=== PATIENT | female | born 1945 | race Caucasian/White ===

== ENCOUNTER 2018-09-08 05:51 | Inpatient (IN) | payer MEDICARE, OTHER, SELFPAY ==
[2018-09-01 08:31] VITALS: BMI 40.7
[2018-09-08] VITALS (16 sets, daily range): BP systolic 114–151; BP diastolic 49–90; PULSE 85–96; RESP 10–21; TEMP 36.1–37.2; O2SAT 92–99; BMI 40.4
[2018-09-08] MEDS: LACTATED RINGERS 1,000 ML 42 ML IV ×2 (07:25→10:27)
--- NOTE | 2018-09-08 07:48 | PM.PREOP ---
Pre-operative Note Interval Note History & Physical reviewed/Exam performed by Physician: Yes Changes to H&P: No
[2018-09-08] MEDS: CEFAZOLIN 2 GM/100 ML FROZ.PIGGY IV ×3 (07:51→23:39)
--- NOTE | 2018-09-08 08:42 | SUR.OPER ---
Prone on spine table, head in foam head support, padded chest and pelvic supports, gel pad at knees, lower legs supported by pillows; nipples, genitalia and toes free of pressure, arms secured on foam padded arm boards at <90 degrees abduction. Tape over blanket at thigh secured to table.
[2018-09-08] MEDS: BUPIVACAINE LIPOSOME 266 MG/20 ML VIAL INJ (08:51)
[2018-09-08] MEDS: BUPIVACAINE 0.25% W/ EPI VIAL 30 ML INJ (08:51)
[2018-09-08] MEDS: ACETAMINOPHEN IV 1,000 MG/100 ML VIAL 400 MG IV (10:17)
--- NOTE | 2018-09-08 11:29 | PM.OP.1 ---
Operative Date/Time/Diagnoses Date of procedure: 09/08/18 Time of procedure: 08:29 Pre-op diagnosis: 1. L4-5, L5-S1 spondylolisthesis 2. L4-5, L5-S1 spinal stenosis. Post-op diagnosis: same Procedure & Clinicians Procedure: 1. L4-5, L5-S1 Postero-lateral and posterior interbody fusion 2. L4-5, L5-S1 interbody cage placement. 3. L4-5, L5-S1 decompressive laminectomy with bilateral facetecomies 4. L4-5, L5-S1 Posterior segmental instrumentation 5. Coleman of bone marrow from iliac crest 6. Utilization of microsurgical technique and operating microscope Same procedure as scheduled: Yes Indications: Patient has been having chronic back pain and worsening lumbar radiculopathy. Patient failed multiple conservative management with worsening pain weakness and numbness in her lower extremity. Patient has been having difficulty performing activity of daily living. After discussing risks benefits of treatment options, patient elected proceed with surgery. Surgeon: Dorothy Claudio Chief Executive Or Managing Director: Leila Fairbanks Click Yes if Unassisted: No Anesthesia Type: General Operative Notes Closure Type: primary Specimen(s): none sent Prosthetic devices, grafts, tissues, transplants, or devices: Globus revolve screws, Rise cages Applied: catheter Estimated Blood Loss (mL): 100 Blood products transfused: none Procedure in detail: Patient was seen in the preoperative area. Risks and benefits of the surgery was discussed with the patient. Informed consent was obtained from the patient and placed in the chart. Surgical site was marked. Patient was taken to the operative room. General anesthesia was administered. Prophylactic antibiotic was given to the patient less than 30 min before the incision was made. Patient was placed into a prone position on the Mitchell table. Patient's back was then prepped and draped in the sterile fashion. Time-out was performed at this time. Using AP and lateral C-arm imaging the interval between L4-S1 was identified and marked on patient's back. A 2 inch incision 2 in from midline was made on the left side first. The fascia was incised in line with skin incision. Globus MARS retractors was placed inside the incision and docked onto the L4 and L5 lamina. Using microsurgical technique and operating microscope, a L4 and L5 laminectomy and L4-5 L5-S1 facetectomy was performed using a Kerrison rongeur. During the process of decompression more than 75% of bilateral L4-5 L5-S1 facets were removed in order to decompress the spinal canal and the lateral recess. The L4-5 L5-S1 level was grossly unstable after the decompression was completed and requiring the fusion procedure. The disc space at L4-5, L5-S1 was identified. And a total diskectomy was performed at L4-5, L5-S1 level. The endplates were decorticated using a rasp and shaver. The total diskectomy and decortication was performed at L4-5, L5-S1 level in order to to accomplish a L4-5, L5-S1 fusion. The local bone from the laminectomy and facetectomy was saved for local bone grafting. After the total diskectomy and decortication was completed, Bio4 bone graft material was combined with local bone that was harvested earlier. At this time, a separate skin is incision was made over the iliac crest. A Jamshidi needle was inserted into the iliac crest through a separate skin incision. 5 cc of bone marrow aspiration was obtained through the separate skin incision using a Jamshidi needle from the iliac crest. The bone marrow aspiration was combined with local bone and the Bio4 bone grafting material. The bone grafting material was placed into the L4-5, L5-S1 interbody space along with two cages, one expandable cage at each level. The cages were expanded to their maximum height using the torque limiting screwdriver. At this time a mirror image incision was made on the right side. The fascia was incised in line with the skin incision. Globus MARS retractor was inserted and docked onto the L4-5, L5-S1 posterolateral gutter. Using the power drill, posterior-lateral decortication was performed at L4-5, L5-S1 level until bleeding cortical bone was identified. The remaining bone grafting material was placed into the L4-5 L5-S1 posterior lateral gutter he order to accomplish posterolateral fusion at the L4-5 L5-S1 levels. Using the double C-arm technique, pedicle screws were placed into the L4, L5, S1 pedicles bilaterally. This was done by placing the Jamshidi needle into the pedicles, then placing the guidewires over the Jamshidi needle, and finally placing the cannulated screws over the guidewires bilaterally. After the pedicle screws were placed, 2 titanium rods was locked into the heads of the pedicle screws using locking caps and torque limiting screwdriver. Total 6 pedicles screws were placed. After all the hardware was placed, and confirmed with AP and lateral C-arm imaging, the wound was then irrigated with sterile normal saline and packed with Ray-Bruno gauze for 3 min to accomplish hemostasis. After the gauze was removed the deep fascia was closed with #1 Vicryl suture. The subcutaneous layer was closed with 2-0 Vicryl. The skin was closed with skin nai. Patient tolerated the procedure well. There were no complications. Complications: none Condition: stable Disposition: Acute Care Plan for aftercare: Admit to inpatient hospital
--- NOTE | 2018-09-08 11:34 | DI.RAD.S_ITS ---
PROCEDURE: XR LUMBAR SPINE 2-3V INDICATIONS: L4-5, L5-S1 TLIF TECHNIQUE: 2 intraoperative fluoroscopic views of the lumbar spine were acquired. COMPARISON: None. FINDINGS: Intraoperative fluoroscopic images of lower lumbar spine shows transpedicular fusion at L5-S1 levels with intervertebral spacer placement at L4-5 and L5-S1 levels.. IMPRESSION: Fluoroscopy guidance was provided intraoperatively for posterior fusion at L4-S1 levels. Dictated by: Cristian Mackey M.D. on 09/08/2018 at 11:42 Approved by: Cristian Mackey M.D. on 09/08/2018 at 11:44
[2018-09-08] MEDS: INSULIN REGULAR 100 UNIT/ML 3 ML VIAL SUBCUT (11:55)
[2018-09-08] MEDS: fentaNYL 100 MCG/2 ML INJ 50 MCG IV (12:40)
[2018-09-08] MEDS: SODIUM CHLORIDE 0.9% 1,000 ML 100 ML IV ×2 (13:24→23:08)
[2018-09-08] MEDS: OXYCODONE IR 5 MG TABLET 10 MG PO ×4 (13:56→23:39)
--- NOTE | 2018-09-08 15:00 | PC.NURSE ---
Patient received from PACU at 13:10, sleepy but arousable to conversation. VSS, 92-93% on 4L. Patient states pain is sharp like a knife in her back, rates it 10/10. Dressing to back CDI. Moving all extremities. Romero in place, secure, and draining clear yellow urine. Daughters at bedside. Bed alarm activated for safety. Call light within reach.
--- NOTE | 2018-09-08 15:30 | PT.IIE ---
Current Diagnoses Spondylolisthesis, lumbar region (09/08/18) Other spondylosis with radiculopathy, lumbar region (09/08/18) Spinal stenosis, lumbar region with neurogenic claudication (09/08/18) Surgery Performed Operation Date: 09/08/18 07:45 Actual Procedures p L4-5, L5-S1 TLIF w/posterior dwayne Claudio MD Surgical History (Last Updated 09/01/18 @ 09:38 by Karon Clay RN) History of arthroplasty of right knee (Acute ~2014) History of nasal surgery (Acute) Hx of bladder repair surgery (Acute) Hx of cholecystectomy (Acute) Hx of thumb surgery (Acute) Hx of tonsillectomy (Acute) Status post cataract extraction of both eyes with insertion of intraocular lens (Acute) Medical History (Last Updated 09/01/18 @ 09:38 by Karon Clay RN) Aortic stenosis, mild (Acute) Arthritis (Acute) Breast cancer, right (Acute ~1995) Bronchospasm (Acute) Chronic bronchitis (Acute) Depression (Acute) Diabetes (Acute) Eczema (Acute) GERD (gastroesophageal reflux disease) (Acute) Glaucoma (Acute) HTN (hypertension) (Acute) Hyperlipidemia (Acute) IBS (irritable bowel syndrome) (Acute) Mitral stenosis (Acute) Nephrolithiasis (Acute) Pneumonia (Acute) RLS (restless legs syndrome) (Acute) Sciatica (Acute) Sleep apnea (Acute) Physical Therapy Inpatient Evaluation/Re-Eval M1 PT/OT-IP Prior Functional Status Start: 09/08/18 16:28 Freq: NEEDED Status: Active Protocol: Document 09/08/18 15:30 AB (Rec: 09/08/18 16:38 AB [id number]) Medical Review Prior Functional Status Medical History Reviewed Yes Communication able to make needs known Mobility and Gait stated that she is independent with all mobilities and ambulation without AD Social History Household Members none Living Arrangements Apartment/Condo Number of Floors (Floors) One Floor Number of Stairs To Enter/Railing? no steps to enter Home Environment Standard Height Toilet Tub/Shower Home Equipment Front Wheel Walker Straight Cane Raised Toilet Seat Without Armrests Shower Seat without Backrest Hand Held Shower Talk Show Host Bed Rails Grab Bars Near Toilet Grab Bars In Shower Additional Social History Comment will have her daughters assist her at home. Has R side bed rail M2 PT-IP Current Condition Start: 09/08/18 16:28 Freq: NEEDED Status: Active Protocol: Document 09/08/18 15:30 AB (Rec: 09/08/18 16:38 AB [id number]) Physical Therapy Current Condition Current Condition Evaluation Date 09/08/18 Treatment Diagnosis L4-S1 fusion/lami; difficulty in walking Onset Date 09/08/18 Precautions Lumbar Precautions Log Roll No Twisting Limit Bending Lifting Restriction of 10 lbs Gait Belt above Incisional Area M3 PT-IP Subjective Start: 09/08/18 16:28 Freq: NEEDED Status: Active Protocol: Document 09/08/18 15:30 AB (Rec: 09/08/18 16:38 AB [id number]) Subjective Physical Therapy Visit Type Type Initial Evaluation Visit Start Time 15:30 Visit Stop Time 16:25 Total Visit Minutes 55 Number of INK BLENDER Visits 0 Physical Therapy Visit Comments Patient Comments pt agreeable to get up Patient Goals to go home Therapy Pain Assessment Pain When Pain Assessed At Rest Pain Present Pain Present Pain Reported Location Back Intensity 2 Scale Used Numeric (1 - 10) Pain Management Techniques Apply Cold Re-positioning Timing of Activity with Medications M4 PT-IP Mobility and Gait Start: 09/08/18 16:28 Freq: NEEDED Status: Active Protocol: Document 09/08/18 15:30 AB (Rec: 09/08/18 16:38 AB [id number]) PT-Bed Mobility Assessment Rolling Type of Rolling Log Rolling Level of Assist Standby Assistance Supine to Sit Supine to Sit Standby Assistance Scooting Scooting to Edge of Bed Standby Assistance PT-Transfer Assessment Sit to and From Stand Sit to and from Stand Minimal Assistance Equipment Transfer Assistive Device Bed Rail Front Wheeled Walker Orthotic/Prosthetic Devices or Brace: No Transfers Transfer Destination Chair Transfer Technique pt ambulated to the chair using FWW Transfer Ability Level of Assist Minimal Assistance Gait Assessment Gait Gait Assistance Required: Minimum Assistance Distance (Feet) 12 Able to Maintain Weight Bearing Status Yes During Gait Assistive Devices Assistive Device Gait Belt Front Wheeled Walker Orthotic/Prosthetic Devices or Brace: No Gait Deviations General Gait Pattern Decreased Stride Length Decreased Feet Clearance Factors Limiting Gait Function Factors Limiting Gait Function Decreased Activity Tolerance Decreased Strength Limited Range of Motion Pain Poor Balance PT-Balance Assessment Sitting Balance and Reactions Static Sitting Balance Ability Good Dynamic Sitting Balance Ability Good Standing Balance and Reactions Static Standing Balance Ability Fair Dynamic Standing Balance Ability Fair Device Used FWW M5 PT-IP Objective Assessments Start: 09/08/18 16:28 Freq: NEEDED Status: Active Protocol: Document 09/08/18 15:30 AB (Rec: 09/08/18 16:38 AB [id number]) Orientation Orientation/Cognition Level of Alertness Alert Orientation Name Age Birthday Place Situation Language Function Ability No Deficits Noted Safety Awareness Understands Safety Issues Gross Range of Motion Lower Extremity ROM Assessment Within Functional Limits Strength Lower Extremity Strength Assessment Within Functional Limits Coordination Assessment Gross Coordination Gross Coordination WNL Sensation Assessment Sensation Gross Sensation WNL Muscle Tone Muscle Tone WNL Yes M6 PT-IP Treatment Start: 09/08/18 16:28 Freq: NEEDED Status: Active Protocol: Document 09/08/18 15:30 AB (Rec: 09/08/18 16:38 AB [id number]) Physical Therapy Treatment Education Education Provided Precautions Weight Bearing Status Post-Op Packet Safety M7 PT-IP Assessment and Plan Start: 09/08/18 16:28 Freq: NEEDED Status: Active Protocol: Document 09/08/18 15:30 AB (Rec: 09/08/18 16:38 AB [id number]) PT Summary Assessment and Plan Potential Rehabilitation Potential Good Status of Condition at Evaluation Stable Summary Impairments Pain ROM Strength Balance Bed Mobility Transfers Gait Activity Tolerance Assessment Summary pt requiring one person assist with mobility and plans to go home with her daughters to assist her. pt will likely improve during hospital stay and may go home with assist when medically stable. Goals Bed Mobility Goal Independent Transfer Goal Independent Front Wheeled Walker Gait Goal Standby Assistance Front Wheel Walker Gait Distance 151 Frequency of Treatment Frequency Of Treatment Twice a Day Treatment Plan Physical Therapy Treatment Plan Bed Mobility Training Transfer Training Gait Training Therapeutic Exercise Balance Retraining Post Op Education Discharge Planning Hot or Cold Pack Neuromuscular Re-ed Coordination Retraining Manual Therapy Other Recommendations and Next Treatment ambulation Focus Recommendations To Nursing Amount of Assist Needed 1 Person Assist Discharge Recommendations PT Discharge Recommendations Home with Assistance
--- NOTE | 2018-09-08 16:44 | PC.NURSE ---
1600 Pt up w/ physical therapy pain level controlled, ice in place. Started on Cheph. Pt on 2 liters O2 93% Saturation, BP 129/55, P 88, Surgical dressing dry and intact.
[2018-09-08] MEDS: hydrOXYzine pamoate 25 MG CAPSULE PO (17:13)
[2018-09-08] MEDS: ACETAMINOPHEN 325 MG TABLET 650 MG PO (19:06)
[2018-09-08] MEDS: LOSARTAN 50 MG TABLET PO (20:46)
[2018-09-08] MEDS: DOCUSATE 100 MG CAPSULE PO (20:46)
[2018-09-08] MEDS: PRAMIPEXOLE 0.25 MG TABLET 0.5 MG PO (20:47)
[2018-09-08] MEDS: SENNOSIDES 8.6 MG TABLET 17.2 MG PO (20:49)
[2018-09-08] MEDS: ZOLPIDEM 5 MG TABLET 10 MG PO (20:50)
[2018-09-09] VITALS (8 sets, daily range): BP systolic 107–144; BP diastolic 56–75; PULSE 75–98; RESP 16–18; TEMP 36.3–36.7; O2SAT 88–98
[2018-09-09] MEDS: OXYCODONE IR 5 MG TABLET 10 MG PO ×5 (02:29→20:49)
--- NOTE | 2018-09-09 05:56 | RT ---
Spoke to pt regarding the use of ETc02 monitor for her sleep apnea diagnosis. Pt stated that she wanted to remain on oxygen and a cont pox overnight and did not see the need for additional monitoring at this time.
[2018-09-09 06:24] LABS: Hematocrit 35.1 % (36-46); Hemoglobin 10.8 g/dL (12.0-16.0)
--- NOTE | 2018-09-09 08:04 | P.PN_ITS ---
Subjective Date Patient Seen: 09/09/18 Time Patient Seen: 07:55 Interval history: POD 1 s/p lumbar fusion with Dr. Claudio. Patients pain was well controlled last night. She has not been up with PT yet. She has a hall in place. Exam Vital Signs (past 8 hours): - 09/09/18 03:56 Temperature 97.3 F L Pulse Rate 75 Respiratory Rate 16 Blood Pressure 128/69 Pulse Oximetry 96 Oxygen Delivery Method Nasal Cannula Oxygen Flow Rate 2 Narrative Exam Narrative: Patient lying in bed in NAD. She was groggy this Am, when discussing with her daughter this is her normal affect every morning since she takes ambien at night. Patient is oriented X3. Calves are soft, compressible, and nontender bilaterally. Pulses are symmetrical. Hall in place. Objective Labs Result Diagrams: 09/09/18 06:01 Labs: Laboratory Results - last 24 hr 09/09/18 06:01 Hgb 10.8 L Hct 35.1 L Assessment & Plan Post-op (1) S/P lumbar fusion: Current Visit: Yes Status: Acute Postoperative Procedures Operation Date: 09/08/18 07:45 Actual Procedures Side Surgeon p L4-5, L5-S1 TLIF w/posterior instru Dorothy Claudio MD Patient will mobilize with PT today. No excessive bending, lifting or twisting. Once mobilizing more can DC hall. Continue current pain medications. Patient will likely DC in next 2-3 days once mobilizing safely and pain adequately co ntrolled.
--- NOTE | 2018-09-09 10:36 | CM.IDA ---
Discharge Planning/Care Management CM Discharge Assessment Start: 09/09/18 10:27 Freq: Status: Active Protocol: Document 09/09/18 10:31 BRAD (Rec: 09/09/18 10:36 BRAD [id number]) Discharge Planning Assessment Assigned Automatic Winder Operator FRIDA Eid DPOA/Assigned Designee Name Pily Ontiveros Nato dtr Contact Information [phone] Advance Directives? Yes: POLST Advance Directives on File No History Provided By Patient Family Member Medical Record Prior Living Arrangements Apartment/Condo Household Members none Type of transporation used prior to Drives own vehicle admit Independent with ADL's Yes Is patient alert and oriented? Yes Barriers to Discharge No Comment Pt is POD#1 from spinal surgery w/ Dr Claudio. Payer: Medicare/[employer]. Reviewed chart. PT eval yesterday indicates pt is indp at baseline w/o AD. Pt plans to have her dtrs assist upon her return to her apt w/ outpt f/u as ordered by Dr Claudio. No SW needs anticipated. P: Home w/family to assist when medically cleared. PT recommending same. FRIDA Enriquez Discharge Plan Home Transportation Arrangement Family Referrals Initiated None needed Review Status In Process
[2018-09-09] MEDS: DOCUSATE 100 MG CAPSULE PO ×2 (10:39→20:49)
[2018-09-09] MEDS: VENLAFAXINE ER 75 MG CAP 225 MG PO (10:39)
[2018-09-09] MEDS: POTASSIUM CHLORIDE 10 MEQ TAB PO (10:40)
[2018-09-09] MEDS: LOSARTAN 50 MG TABLET PO (10:40)
[2018-09-09] MEDS: hydroCHLOROthiazide 25 MG TABLET PO (10:43)
[2018-09-09] MEDS: AMLODIPINE 5 MG TABLET PO (10:43)
--- NOTE | 2018-09-09 11:30 | PT.IPTN ---
Current Diagnoses Spondylolisthesis, lumbar region (09/08/18) Other spondylosis with radiculopathy, lumbar region (09/08/18) Spinal stenosis, lumbar region with neurogenic claudication (09/08/18) Arthrodesis status (09/08/18) Surgery Performed Operation Date: 09/08/18 07:45 Actual Procedures p L4-5, L5-S1 TLIF w/posterior dwayne Claudio MD Physical Therapy Treatment Note M2 PT-IP Current Condition Start: 09/08/18 16:28 Freq: NEEDED Status: Active Protocol: Document 09/08/18 15:30 AB (Rec: 09/08/18 16:38 AB [id number]) Physical Therapy Current Condition Current Condition Evaluation Date 09/08/18 Treatment Diagnosis L4-S1 fusion/lami; difficulty in walking Onset Date 09/08/18 Precautions Lumbar Precautions Log Roll No Twisting Limit Bending Lifting Restriction of 10 lbs Gait Belt above Incisional Area M3 PT-IP Subjective Start: 09/08/18 16:28 Freq: NEEDED Status: Active Protocol: Document 09/09/18 11:30 GGD (Rec: 09/09/18 12:26 GGD [id number]) Subjective Physical Therapy Visit Type Type Treatment Note Visit Start Time 11:00 Visit Stop Time 11:30 Total Visit Minutes 30 Number of BREWING TECHNICIAN Visits 1 Physical Therapy Visit Comments Patient Comments Pt wants to do more. Therapy Pain Assessment Pain When Pain Assessed At Rest Pain Present Pain Present Pain Reported Location Back Intensity 3 Scale Used Numeric (1 - 10) M4 PT-IP Mobility and Gait Start: 09/08/18 16:28 Freq: NEEDED Status: Active Protocol: Document 09/09/18 11:30 GGD (Rec: 09/09/18 12:26 GGD [id number]) PT-Bed Mobility Assessment Rolling Type of Rolling Log Rolling Roll to Right Level of Assist Standby Assistance Supine to Sit Supine to Sit Standby Assistance Bedrails Sit to Supine Sit to Supine Contact Guard Assistance Bedrails Scooting Scooting to Edge of Bed Standby Assistance PT-Transfer Assessment Sit to and From Stand Sit to and from Stand Contact Guard Assistance Use of Upper Extremities Equipment Transfer Assistive Device Bed Rail Front Wheeled Walker Orthotic/Prosthetic Devices or Brace: No Transfers Transfer Destination Bed Chair Transfer Ability Level of Assist Contact Guard Assistance Comments Mobility Comments Pt transfer from high bed. She need min cues for sit to stand and log roll. Gait Assessment Gait Gait Assistance Required: Minimum Assistance Distance (Feet) 60 Able to Maintain Weight Bearing Status Yes During Gait Assistive Devices Assistive Device Gait Belt Front Wheeled Walker Orthotic/Prosthetic Devices or Brace: No Gait Deviations General Gait Pattern Decreased Stride Length Decreased Feet Clearance Factors Limiting Gait Function Factors Limiting Gait Function Decreased Activity Tolerance Decreased Strength Limited Range of Motion Pain Poor Balance Comments Gait Comments O2 on RA 93-97% with activity. M5 PT-IP Objective Assessments Start: 09/08/18 16:28 Freq: NEEDED Status: Active Protocol: Document 09/08/18 15:30 AB (Rec: 09/08/18 16:38 AB [id number]) Orientation Orientation/Cognition Level of Alertness Alert Orientation Name Age Birthday Place Situation Language Function Ability No Deficits Noted Safety Awareness Understands Safety Issues Gross Range of Motion Lower Extremity ROM Assessment Within Functional Limits Strength Lower Extremity Strength Assessment Within Functional Limits Coordination Assessment Gross Coordination Gross Coordination WNL Sensation Assessment Sensation Gross Sensation WNL Muscle Tone Muscle Tone WNL Yes M6 PT-IP Treatment Start: 09/08/18 16:28 Freq: NEEDED Status: Active Protocol: Document 09/09/18 11:30 GGD (Rec: 09/09/18 12:26 GGD [id number]) Physical Therapy Treatment Education Education Provided Precautions Safety M7 PT-IP Assessment and Plan Start: 09/08/18 16:28 Freq: NEEDED Status: Active Protocol: Document 09/09/18 11:30 GGD (Rec: 09/09/18 12:26 GGD [id number]) PT Summary Assessment and Plan Summary Assessment Summary PT improving with mobility. She has assistance from daughters and has good understanding of caregiver needs. She need less assist with sit to stand and improved gait tolerance. She will likely continue to progress with D/C home when medically stable. Frequency of Treatment Frequency Of Treatment Twice a Day Treatment Plan Physical Therapy Treatment Plan Bed Mobility Training Transfer Training Gait Training Therapeutic Exercise Balance Retraining Post Op Education Discharge Planning Hot or Cold Pack Neuromuscular Re-ed Coordination Retraining Manual Therapy Other Recommendations and Next Treatment ambulation Focus Recommendations To Nursing Amount of Assist Needed 1 Person Assist Discharge Recommendations PT Discharge Recommendations Home with Assistance
--- NOTE | 2018-09-09 12:11 | PC.NURSE ---
Day Shift- Pt given prn Oxycodone X1 at 0710 for 3/10 aching to lower back, pt stated did not want to get behind on pain medications. Pt OOB with 1PA to chair after breakfast. Around 1020, Pt stated feeling groggy, closes eyes when having a conversation with this job specification writer. States unable to concentrate on her reader and unable to finish reading a sentence. Able to make needs known, states pain continued to be 3/10 to lower back. Will monitor. Pt's daughter Pily at bedside also. Lower back dressing CDI, CMS+, denies numbness/tingling. BLE edema to lower legs around sock line that is indented. PPP. Romero insitu draining clear yellow urine. O2 sat 95% on 1LNC, monitor O2 sats, enc incentive spirometer use, needs reminders due to grogginess.
[2018-09-09] MEDS: ACETAMINOPHEN 325 MG TABLET 650 MG PO (14:05)
--- NOTE | 2018-09-09 14:10 | PC.NURSE ---
PAIN - Up dangle with OT, requesting pain medication, states back discomfort 4 on scale 0/10, discussed dosing, timing, prefers to try 5mg oxycodone as pt felt very sedated this am, given 5mg oxycodone and 650mg po tylenol now, informed pt we will reevaluate to determinine if adequate after mobilization.
--- NOTE | 2018-09-09 15:17 | PT.IPTN ---
Current Diagnoses Spondylolisthesis, lumbar region (09/08/18) Other spondylosis with radiculopathy, lumbar region (09/08/18) Spinal stenosis, lumbar region with neurogenic claudication (09/08/18) Arthrodesis status (09/08/18) Surgery Performed Operation Date: 09/08/18 07:45 Actual Procedures p L4-5, L5-S1 TLIF w/posterior dwayne Claudio MD Physical Therapy Treatment Note M2 PT-IP Current Condition Start: 09/08/18 16:28 Freq: NEEDED Status: Active Protocol: Document 09/08/18 15:30 AB (Rec: 09/08/18 16:38 AB [id number]) Physical Therapy Current Condition Current Condition Evaluation Date 09/08/18 Treatment Diagnosis L4-S1 fusion/lami; difficulty in walking Onset Date 09/08/18 Precautions Lumbar Precautions Log Roll No Twisting Limit Bending Lifting Restriction of 10 lbs Gait Belt above Incisional Area M3 PT-IP Subjective Start: 09/08/18 16:28 Freq: NEEDED Status: Active Protocol: Document 09/09/18 15:09 GGD (Rec: 09/09/18 15:16 GGD [id number]) Subjective Physical Therapy Visit Type Type Treatment Note Visit Start Time 14:30 Visit Stop Time 15:08 Total Visit Minutes 38 Number of SENIOR ADMINISTRATIVE ASSOCIATE Visits 2 Physical Therapy Visit Comments Patient Comments Pt want's to work with therapy . Therapy Pain Assessment Pain When Pain Assessed At Rest Pain Present Pain Present Pain Reported Location Back Intensity 3 Scale Used Numeric (1 - 10) M4 PT-IP Mobility and Gait Start: 09/08/18 16:28 Freq: NEEDED Status: Active Protocol: Document 09/09/18 15:09 GGD (Rec: 09/09/18 15:16 GGD [id number]) PT-Bed Mobility Assessment Rolling Type of Rolling Log Rolling Roll to Right Level of Assist Standby Assistance Supine to Sit Supine to Sit Standby Assistance Bedrails Sit to Supine Sit to Supine Contact Guard Assistance Bedrails Scooting Scooting to Edge of Bed Standby Assistance PT-Transfer Assessment Sit to and From Stand Sit to and from Stand Contact Guard Assistance Use of Upper Extremities Equipment Transfer Assistive Device Bed Rail Front Wheeled Walker Orthotic/Prosthetic Devices or Brace: No Transfers Transfer Destination Bed Chair Transfer Ability Level of Assist Contact Guard Assistance Comments Mobility Comments Pt transfer from bed at 31.5 in high, with use of step stool. She need min cues for sit to stand and log roll. Gait Assessment Gait Gait Assistance Required: Minimum Assistance Distance (Feet) 80 Able to Maintain Weight Bearing Status Yes During Gait Assistive Devices Assistive Device Gait Belt Front Wheeled Walker Orthotic/Prosthetic Devices or Brace: No Gait Deviations General Gait Pattern Decreased Stride Length Decreased Feet Clearance Factors Limiting Gait Function Factors Limiting Gait Function Decreased Activity Tolerance Decreased Strength Limited Range of Motion Pain Poor Balance M5 PT-IP Objective Assessments Start: 09/08/18 16:28 Freq: NEEDED Status: Active Protocol: Document 09/08/18 15:30 AB (Rec: 09/08/18 16:38 AB [id number]) Orientation Orientation/Cognition Level of Alertness Alert Orientation Name Age Birthday Place Situation Language Function Ability No Deficits Noted Safety Awareness Understands Safety Issues Gross Range of Motion Lower Extremity ROM Assessment Within Functional Limits Strength Lower Extremity Strength Assessment Within Functional Limits Coordination Assessment Gross Coordination Gross Coordination WNL Sensation Assessment Sensation Gross Sensation WNL Muscle Tone Muscle Tone WNL Yes M6 PT-IP Treatment Start: 09/08/18 16:28 Freq: NEEDED Status: Active Protocol: Document 09/09/18 15:09 GGD (Rec: 09/09/18 15:16 GGD [id number]) Physical Therapy Treatment Education Education Provided Precautions Safety M7 PT-IP Assessment and Plan Start: 09/08/18 16:28 Freq: NEEDED Status: Active Protocol: Document 09/09/18 15:09 GGD (Rec: 09/09/18 15:16 GGD [id number]) PT Summary Assessment and Plan Summary Assessment Summary Pt improving with mobility. She was able to progress gait distance. She needs min cues for log roll technique. She safe for home D/C when medically stable. Frequency of Treatment Frequency Of Treatment Twice a Day Treatment Plan Physical Therapy Treatment Plan Bed Mobility Training Transfer Training Gait Training Therapeutic Exercise Balance Retraining Post Op Education Discharge Planning Hot or Cold Pack Neuromuscular Re-ed Coordination Retraining Manual Therapy Other Recommendations and Next Treatment ambulation Focus Recommendations To Nursing Amount of Assist Needed 1 Person Assist Discharge Recommendations PT Discharge Recommendations Home with Assistance
--- NOTE | 2018-09-09 15:46 | OT.IP.EVAL ---
Current Diagnoses Spondylolisthesis, lumbar region (09/08/18) Other spondylosis with radiculopathy, lumbar region (09/08/18) Spinal stenosis, lumbar region with neurogenic claudication (09/08/18) Arthrodesis status (09/08/18) Surgery Performed Operation Date: 09/08/18 07:45 Actual Procedures p L4-5, L5-S1 TLIF w/posterior dwayne Claudio MD Past Medical History (Last Updated 09/01/18 @ 09:38 by Karon Clay RN) Aortic stenosis, mild (Acute) Arthritis (Acute) Breast cancer, right (Acute ~1995) Bronchospasm (Acute) Chronic bronchitis (Acute) Depression (Acute) Diabetes (Acute) Eczema (Acute) GERD (gastroesophageal reflux disease) (Acute) Glaucoma (Acute) HTN (hypertension) (Acute) Hyperlipidemia (Acute) IBS (irritable bowel syndrome) (Acute) Mitral stenosis (Acute) Nephrolithiasis (Acute) Pneumonia (Acute) RLS (restless legs syndrome) (Acute) Sciatica (Acute) Sleep apnea (Acute) Surgical History (Last Updated 09/01/18 @ 09:38 by Karon Clay RN) History of arthroplasty of right knee (Acute ~2014) History of nasal surgery (Acute) Hx of bladder repair surgery (Acute) Hx of cholecystectomy (Acute) Hx of thumb surgery (Acute) Hx of tonsillectomy (Acute) Status post cataract extraction of both eyes with insertion of intraocular lens (Acute) Occupational Therapy Inpatient Evaluation/Re-Eval M1 PT/OT-IP Prior Functional Status Start: 09/08/18 16:28 Freq: NEEDED Status: Active Protocol: Document 09/08/18 15:30 AB (Rec: 09/08/18 16:38 AB [id number]) Medical Review Prior Functional Status Medical History Reviewed Yes Communication able to make needs known Mobility and Gait stated that she is independent with all mobilities and ambulation without AD Social History Household Members none Living Arrangements Apartment/Condo Number of Floors (Floors) One Floor Number of Stairs To Enter/Railing? no steps to enter Home Environment Standard Height Toilet Tub/Shower Home Equipment Front Wheel Walker Straight Cane Raised Toilet Seat Without Armrests Shower Seat without Backrest Hand Held Shower Tax Manager Cpa Bed Rails Grab Bars Near Toilet Grab Bars In Shower Additional Social History Comment will have her daughters assist her at home. Has R side bed rail M1 PT/OT-IP Prior Functional Status Start: 09/09/18 15:19 Freq: NEEDED Status: Active Protocol: Document 09/09/18 15:20 [facility] (Rec: 09/09/18 15:46 [facility] [id number]) Medical Review Prior Functional Status Medical History Reviewed Yes Communication able to make needs known Mobility and Gait stated that she is independent with all mobilities and ambulation without AD Activities of Daily Living and IADL's Pt states prior completely independent with all Adl and IADL needs. Social History Household Members none Living Arrangements Apartment/Condo Number of Floors (Floors) One Floor Number of Stairs To Enter/Railing? no steps to enter Home Environment Standard Height Toilet Tub/Shower Home Equipment Front Wheel Walker Straight Cane Raised Toilet Seat Without Armrests Shower Seat without Backrest Hand Held Shower Tax Manager Cpa Bed Rails Grab Bars Near Toilet Grab Bars In Shower Additional Social History Comment will have her daughters assist her at home. Has R side bed rail M2 OT-IP Current Condition Start: 09/09/18 15:19 Freq: Status: Active Protocol: Document 09/09/18 15:20 [facility] (Rec: 09/09/18 15:46 [facility] [id number]) Occupational Therapy Current Condition Current Condition Evaluation Date 09/09/18 Treatment Diagnosis Spinal Stenosis Diagnosis Onset Date 09/08/18 M3 OT- IP Subjective and Pain Start: 09/09/18 15:19 Freq: Status: Active Protocol: Document 09/09/18 15:20 [facility] (Rec: 09/09/18 15:46 [facility] [id number]) OT- Subjective Occupational Therapy Visit Type Type Initial Evaluation Visit Start Time 14:00 Visit Stop Time 14:35 Total Visit Minutes 35 Occupational Therapy Visit Comments Patient Comments Pt willing to get up. OT Pain Assessment Pain When Pain Assessed At Rest Pain Present Pain Present Pain Reported Location Back Intensity 3 M4 OT- IP ADL's Start: 09/09/18 15:19 Freq: Status: Active Protocol: Document 09/09/18 15:20 [facility] (Rec: 09/09/18 15:46 [facility] [id number]) OT ADL-Grooming General Evaluation Grooming Ability Standby Assistance Areas Needing Assistance Retrieving/Set-up of Grooming Items Comments OT Grooming Comments Pt able to stand to do all grooming needs with FWW. OT ADL-Dressing General Eval Lower Body Dressing Ability Minimal Assistance Areas Needing Assistance Underpants/Brief Assistive Devices Dressing Assistive Devices Tax Manager Cpa Comments OT Dressing Comments Pt states wears pants but not briefs. Pt agreeable that may initially wear disposable briefs. Pt able to practice with tar pot worker to teto brief on . Agreed best to stand for pericare needs after bowel movement and to look into getting device of toilet aid to assist for hygiene needs. M6 OT- IP Functional Cognition Start: 09/09/18 15:19 Freq: Status: Active Protocol: Document 09/09/18 15:20 [facility] (Rec: 09/09/18 15:46 [facility] [id number]) Cognitive Factors Limiting Selfcare Function Cognitive Ability Level of Alertness Alert Patient Orientation Name Place Situation Attention Span Ability Capable of Focused Attention Capable of Sustained Attention Ability to Follow Commands Able to Follow One Step Commands Memory Description Short Term Impaired Safety Awareness Decreased Ability to Apply Precautions Underestimates Need for Assistance Problem Solving Ability Needs Assist to Identify Solutions Cognitive Comments Cognitive Assessment Comments Pt able to follow one step commands and needing step by step instructions fro log rolling. Pt's daughter has good understanding for all pt' s back precautions needs. OT- Vision and Hearing OT- Hearing Assessment OT- Hearing Assessment WFL M7 OT- IP Mobility and Balance Start: 09/09/18 15:19 Freq: Status: Active Protocol: Document 09/09/18 15:20 [facility] (Rec: 09/09/18 15:46 [facility] [id number]) OT- Bed Mobility Assessment Rolling Type of Rolling Roll to Right Level of Assistance Contact Guard Assistance Supine to Sit Supine to Sit Assist Minimal Assistance 1 Person Assistance OT-Transfer Assessment Sit to and From Stand Sit to and from Stand Contact Guard Assistance 1 Person Assistance Transfers Transfer Ability Contact Guard Assistance 1 Person Assistance OT- Balance Assessment Sitting Balance and Reactions Static Sitting Balance Ability Normal Dynamic Sitting Balance Ability Good M8 OT- IP Objective Assessments Start: 09/09/18 15:19 Freq: Status: Active Protocol: Document 09/09/18 15:20 [facility] (Rec: 09/09/18 15:46 [facility] [id number]) OT Gross Range of Motion Upper Extremity Range of Motion Assessment Within Functional Limits M9 OT- IP Assessment and Plan Start: 09/09/18 15:19 Freq: Status: Active Protocol: Document 09/09/18 15:20 [facility] (Rec: 09/09/18 15:46 [facility] [id number]) OT Summary Assessment and Plan Potential Rehabilitation Potential Good Analytic Complexity at Evaluation Low Summary OT Impairments Pain Functional Cognition Functional Mobility Dressing Toileting Bathing Toilet Transfers Shower Transfers Progress Towards Goals Progressing Toward Goals Assessment Summary Pt low complexity and main barrier is pain, decreased safety awareness, high bed 31. 5 inches and now needing one person to assist with ADL and functional mobility needs. Goals Grooming Goal Independent Dressing Goal Standby Assistance Toileting Goal Standby Assistance Bathing Goal Minimal Assistance Toilet Transfer Goal Standby Assistance Shower Transfer Goal Contact Guard Assistance Patient/Caregiver Education Goal Demonstrate Post-Op Precautions Caregiver Independent Assisting Patient Days to Meet Goals 3 Frequency of Treatment Frequency Of Treatment Once a Day Treatment Plan OT Treatment Plan ADL Training Functional Cognition Training Functional Mobility Patient/Family Education Discharge Planning Other Treatment Recommendations and Next Caregiver training for Treatment Focus showering needs. Discharge Recommendations OT Discharge Recommendations Home with Assistance
[2018-09-09] MEDS: PRAMIPEXOLE 0.25 MG TABLET 0.5 MG PO (20:48)
[2018-09-09] MEDS: SENNOSIDES 8.6 MG TABLET 17.2 MG PO (20:49)
[2018-09-09] MEDS: SODIUM CHLORIDE 0.9% FLUSH 10 ML IV (21:05)
[2018-09-09] MEDS: ZOLPIDEM 5 MG TABLET 10 MG PO (22:14)
--- NOTE | 2018-09-09 22:25 | PC.NURSE ---
ASSUMED CARE OF PT AT 2129. PT RESTING IN BED. REFUSES OFFER OF REPOSITION. ESTEVEZ DRAINING TO GRAVITY. RATES PAIN 2/10 DECLINES INTERVENTION. [facility] BED ALARM ON. CALL LIGHT WITHIN REACH.
[2018-09-10] VITALS: BP 132/79; PULSE 100; RESP 16; TEMP 36.6; O2SAT 97
[2018-09-10 05:15] VITALS: BP 134/73; PULSE 104; RESP 16; TEMP 36.7; O2SAT 96
[2018-09-10 07:30] VITALS: BP 149/63; PULSE 103; RESP 20; TEMP 36.8; O2SAT 96
[2018-09-10] MEDS: SODIUM CHLORIDE 0.9% FLUSH 10 ML IV ×2 (07:40→20:10)
--- NOTE | 2018-09-10 07:54 | P.PN_ITS ---
Subjective Date Patient Seen: 09/10/18 Time Patient Seen: 07:52 Interval history: POD #2 status post L4-S1 TLIF with Dr. Claudio. She was ambulating with physical therapy yesterday in her room. She has not been up in the [place] yet. She has her Romero still in place but will get it out this morning. Her pain was well-controlled last night. She does take Ambien at night and they are trying to find what dose works best for her of oxycodone at night, so she is not so groggy in the morning. Exam Vital Signs (past 8 hours): - 09/10/18 00:00 09/10/18 05:15 Temperature 97.9 F 98.0 F Pulse Rate 100 H 104 H Respiratory Rate 16 16 Blood Pressure 132/79 134/73 Pulse Oximetry 97 96 Oxygen Delivery Method Nasal Cannula Oxygen Flow Rate 0 Narrative Exam Narrative: Patient is sitting up in bed in no acute distress. She is more alert than yesterday. She is oriented x3. Calves are soft, compressible, no ntender bilaterally. Pulses are symmetrical. She is able to actively dorsiflex and plantar flex. Objective Labs Result Diagrams: 09/09/18 06:01 Assessment & Plan Post-op (1) S/P lumbar fusion: Current Visit: Yes Status: Acute Postoperative Procedures Operation Date: 09/08/18 07:45 Actual Procedures Side Surgeon p L4-5, L5-S1 TLIF w/posterior instru Dorothy Claudio MD Patient will continue to mobilize physical therapy and OT. She was instructed no excessive bending, lifting, or twisting. Her Romero is to be removed this morning. Continue current pain control. Patient will likely discharge tomorrow once mobilizing safely and pain adequately controlled.
[2018-09-10] MEDS: ACETAMINOPHEN 325 MG TABLET 650 MG PO ×2 (09:19→14:58)
[2018-09-10] MEDS: VENLAFAXINE ER 75 MG CAP 225 MG PO (09:20)
[2018-09-10] MEDS: LOSARTAN 50 MG TABLET PO ×2 (09:20→20:09)
[2018-09-10] MEDS: AMLODIPINE 5 MG TABLET PO (09:20)
[2018-09-10] MEDS: DOCUSATE 100 MG CAPSULE PO ×2 (09:20→20:10)
[2018-09-10] MEDS: OXYCODONE IR 5 MG TABLET 10 MG PO ×3 (09:21→20:09)
[2018-09-10] MEDS: POTASSIUM CHLORIDE 10 MEQ TAB PO (09:21)
[2018-09-10] MEDS: hydroCHLOROthiazide 25 MG TABLET PO (09:21)
--- NOTE | 2018-09-10 10:25 | PT.IPTN ---
Current Diagnoses Spondylolisthesis, lumbar region (09/08/18) Other spondylosis with radiculopathy, lumbar region (09/08/18) Spinal stenosis, lumbar region with neurogenic claudication (09/08/18) Arthrodesis status (09/08/18) Surgery Performed Operation Date: 09/08/18 07:45 Actual Procedures p L4-5, L5-S1 TLIF w/posterior dwayne Claudio MD Physical Therapy Treatment Note M2 PT-IP Current Condition Start: 09/08/18 16:28 Freq: NEEDED Status: Active Protocol: Document 09/08/18 15:30 AB (Rec: 09/08/18 16:38 AB [id number]) Physical Therapy Current Condition Current Condition Evaluation Date 09/08/18 Treatment Diagnosis L4-S1 fusion/lami; difficulty in walking Onset Date 09/08/18 Precautions Lumbar Precautions Log Roll No Twisting Limit Bending Lifting Restriction of 10 lbs Gait Belt above Incisional Area M3 PT-IP Subjective Start: 09/08/18 16:28 Freq: NEEDED Status: Active Protocol: Document 09/10/18 10:25 GGD (Rec: 09/10/18 11:21 GGD [id number]) Subjective Physical Therapy Visit Type Type Treatment Note Visit Start Time 10:00 Visit Stop Time 10:25 Total Visit Minutes 25 Number of RUBY ON RAILS ENGINEER Visits 3 Physical Therapy Visit Comments Patient Comments Pt willing to get up, but is sleepy. Therapy Pain Assessment Pain When Pain Assessed At Rest Pain Present Pain Present Pain Reported Location Back Intensity 3 Scale Used Numeric (1 - 10) M4 PT-IP Mobility and Gait Start: 09/08/18 16:28 Freq: NEEDED Status: Active Protocol: Document 09/10/18 10:25 GGD (Rec: 09/10/18 11:21 GGD [id number]) PT-Bed Mobility Assessment Rolling Type of Rolling Log Rolling Roll to Right Level of Assist Standby Assistance Supine to Sit Supine to Sit Standby Assistance Bedrails Scooting Scooting to Edge of Bed Standby Assistance PT-Transfer Assessment Sit to and From Stand Sit to and from Stand Contact Guard Assistance Use of Upper Extremities Equipment Transfer Assistive Device Bed Rail Front Wheeled Walker Orthotic/Prosthetic Devices or Brace: No Transfers Transfer Destination Chair Transfer Ability Level of Assist Contact Guard Assistance Gait Assessment Gait Gait Assistance Required: Minimum Assistance Distance (Feet) 80 Able to Maintain Weight Bearing Status Yes During Gait Assistive Devices Assistive Device Gait Belt Front Wheeled Walker Orthotic/Prosthetic Devices or Brace: No Gait Deviations General Gait Pattern Decreased Stride Length Decreased Feet Clearance Factors Limiting Gait Function Factors Limiting Gait Function Decreased Activity Tolerance Decreased Strength Limited Range of Motion Pain Poor Balance Comments Gait Comments Pt need mod cues for step length. M5 PT-IP Objective Assessments Start: 09/08/18 16:28 Freq: NEEDED Status: Active Protocol: Document 09/08/18 15:30 AB (Rec: 09/08/18 16:38 AB [id number]) Orientation Orientation/Cognition Level of Alertness Alert Orientation Name Age Birthday Place Situation Language Function Ability No Deficits Noted Safety Awareness Understands Safety Issues Gross Range of Motion Lower Extremity ROM Assessment Within Functional Limits Strength Lower Extremity Strength Assessment Within Functional Limits Coordination Assessment Gross Coordination Gross Coordination WNL Sensation Assessment Sensation Gross Sensation WNL Muscle Tone Muscle Tone WNL Yes M6 PT-IP Treatment Start: 09/08/18 16:28 Freq: NEEDED Status: Active Protocol: Document 09/10/18 10:25 GGD (Rec: 09/10/18 11:21 GGD [id number]) Physical Therapy Treatment Education Education Provided Precautions Safety M7 PT-IP Assessment and Plan Start: 09/08/18 16:28 Freq: NEEDED Status: Active Protocol: Document 09/10/18 10:25 GGD (Rec: 09/10/18 11:21 GGD [id number]) PT Summary Assessment and Plan Summary Assessment Summary Pt needing increase in cueing with mobility. She had decrease step length and tolerance to ambulation. She had no LOB with gait. She was SBA for bed mobility and transfers with min cues. Frequency of Treatment Frequency Of Treatment Twice a Day Treatment Plan Physical Therapy Treatment Plan Bed Mobility Training Transfer Training Gait Training Therapeutic Exercise Balance Retraining Post Op Education Discharge Planning Hot or Cold Pack Neuromuscular Re-ed Coordination Retraining Manual Therapy Other Recommendations and Next Treatment ambulation Focus Recommendations To Nursing Amount of Assist Needed 1 Person Assist Discharge Recommendations PT Discharge Recommendations Home with Assistance
--- NOTE | 2018-09-10 11:12 | PM.CHAP ---
Very unhappy re post op pain. Feels she was not properly informed by MD re post-op pain and nursing home recovery. Reassured and encouraged re eventual decreased pain and care at rehab facility.
[2018-09-10 11:25] VITALS: BP 129/49; PULSE 94; RESP 18; TEMP 36.4; O2SAT 98
--- NOTE | 2018-09-10 13:25 | PC.NURSE ---
Day Shift- Lower back dressing intact with small amount of sang shadowing drainage to left side dressing, area marked with pen. Plan to change dressing after pt showers to Coversite dressing per KATHIE Langley. [facility] Pt groggy this morning again, family states pt usually is groggy in the morning but more so than her usual. Closes eyes during conversation with this caption writer. Oxycodone prn 5 mg given X1 at 0920 for 4/10 pain/aching to lower back. As well as prn Tylenol. Discussed pain management plan with pt and her 2 daughters at bedside. Plan for 5mg Oxycodone for pain management with prn Tylenol. Hooper 10mg Oxycodone for severe pain. Pt OOB to chair X2 and ambulated in halls with PT with 1PA. Pt states pain 4/10 with rest and with movement 8/10, but once back in a resting position, pain decreases to 4/10. Romero removed at 0745, pt voided X1 around 1125 good amount, not measured by reported by patients 2 daughters.
--- NOTE | 2018-09-10 14:00 | PT.IPTN ---
Current Diagnoses Spondylolisthesis, lumbar region (09/08/18) Other spondylosis with radiculopathy, lumbar region (09/08/18) Spinal stenosis, lumbar region with neurogenic claudication (09/08/18) Arthrodesis status (09/08/18) Surgery Performed Operation Date: 09/08/18 07:45 Actual Procedures p L4-5, L5-S1 TLIF w/posterior dwayne Claudio MD Physical Therapy Treatment Note M2 PT-IP Current Condition Start: 09/08/18 16:28 Freq: NEEDED Status: Active Protocol: Document 09/08/18 15:30 AB (Rec: 09/08/18 16:38 AB [id number]) Physical Therapy Current Condition Current Condition Evaluation Date 09/08/18 Treatment Diagnosis L4-S1 fusion/lami; difficulty in walking Onset Date 09/08/18 Precautions Lumbar Precautions Log Roll No Twisting Limit Bending Lifting Restriction of 10 lbs Gait Belt above Incisional Area M3 PT-IP Subjective Start: 09/08/18 16:28 Freq: NEEDED Status: Active Protocol: Document 09/10/18 14:00 GGD (Rec: 09/10/18 14:48 GGD [id number]) Subjective Physical Therapy Visit Type Type Treatment Note Visit Start Time 13:30 Visit Stop Time 14:00 Total Visit Minutes 30 Number of PILOT SUBMERSIBLE Visits 4 Physical Therapy Visit Comments Patient Comments Pt states she would like to move herself and told when she doing something wrong. Therapy Pain Assessment Pain When Pain Assessed At Rest Pain Present Pain Present Pain Reported Location Back Intensity 4 Scale Used Numeric (1 - 10) Pain Management Techniques Apply Cold Re-positioning M4 PT-IP Mobility and Gait Start: 09/08/18 16:28 Freq: NEEDED Status: Active Protocol: Document 09/10/18 14:00 GGD (Rec: 09/10/18 14:48 GGD [id number]) PT-Bed Mobility Assessment Rolling Type of Rolling Log Rolling Roll to Right Level of Assist Standby Assistance Supine to Sit Supine to Sit Minimal Assistance Bedrails Scooting Scooting to Edge of Bed Standby Assistance PT-Transfer Assessment Sit to and From Stand Sit to and from Stand Contact Guard Assistance Use of Upper Extremities Equipment Transfer Assistive Device Bed Rail Front Wheeled Walker Orthotic/Prosthetic Devices or Brace: No Transfers Transfer Destination Bed Chair Transfer Ability Level of Assist Contact Guard Assistance Comments Mobility Comments Pt transfer from bed at 31.5 in high, with use of step stool. Gait Assessment Gait Gait Assistance Required: Minimum Assistance Distance (Feet) 95 Able to Maintain Weight Bearing Status Yes During Gait Assistive Devices Assistive Device Gait Belt Front Wheeled Walker Orthotic/Prosthetic Devices or Brace: No Gait Deviations General Gait Pattern Decreased Stride Length Decreased Feet Clearance Factors Limiting Gait Function Factors Limiting Gait Function Decreased Activity Tolerance Decreased Strength Limited Range of Motion Pain Poor Balance M5 PT-IP Objective Assessments Start: 09/08/18 16:28 Freq: NEEDED Status: Active Protocol: Document 09/08/18 15:30 AB (Rec: 09/08/18 16:38 AB [id number]) Orientation Orientation/Cognition Level of Alertness Alert Orientation Name Age Birthday Place Situation Language Function Ability No Deficits Noted Safety Awareness Understands Safety Issues Gross Range of Motion Lower Extremity ROM Assessment Within Functional Limits Strength Lower Extremity Strength Assessment Within Functional Limits Coordination Assessment Gross Coordination Gross Coordination WNL Sensation Assessment Sensation Gross Sensation WNL Muscle Tone Muscle Tone WNL Yes M6 PT-IP Treatment Start: 09/08/18 16:28 Freq: NEEDED Status: Active Protocol: Document 09/10/18 14:00 GGD (Rec: 09/10/18 14:48 GGD [id number]) Physical Therapy Treatment Education Education Provided Precautions Safety Other Treatments Other Treatment Performed Family training for bed mobility M7 PT-IP Assessment and Plan Start: 09/08/18 16:28 Freq: NEEDED Status: Active Protocol: Document 09/10/18 14:00 GGD (Rec: 09/10/18 14:48 GGD [id number]) PT Summary Assessment and Plan Summary Assessment Summary Pt needed less cues for sit to stand and gait. She did need min cues for bed mobility. She was safe and stable with gait . Daughters able to safely help with bed mobility. Pt safe for D/C home when medically stable. Frequency of Treatment Frequency Of Treatment Twice a Day Treatment Plan Other Recommendations and Next Treatment ambulation Focus Recommendations To Nursing Amount of Assist Needed 1 Person Assist Discharge Recommendations PT Discharge Recommendations Home with Assistance
[2018-09-10 16:00] VITALS: BP 143/71; PULSE 97; RESP 18; TEMP 36.8; O2SAT 98
--- NOTE | 2018-09-10 17:31 | OT.IP.TRT ---
Current Diagnoses Spondylolisthesis, lumbar region (09/08/18) Other spondylosis with radiculopathy, lumbar region (09/08/18) Spinal stenosis, lumbar region with neurogenic claudication (09/08/18) Arthrodesis status (09/08/18) Surgery Performed Operation Date: 09/08/18 07:45 Actual Procedures p L4-5, L5-S1 TLIF w/posterior dwayne Claudio MD Occupational Therapy Treatment Note M2 OT-IP Current Condition Start: 09/09/18 15:19 Freq: Status: Active Protocol: Document 09/09/18 15:20 [facility] (Rec: 09/09/18 15:46 [facility] [id number]) Occupational Therapy Current Condition Current Condition Evaluation Date 09/09/18 Treatment Diagnosis Spinal Stenosis Diagnosis Onset Date 09/08/18 M3 OT- IP Subjective and Pain Start: 09/09/18 15:19 Freq: Status: Active Protocol: Document 09/10/18 16:05 [facility] (Rec: 09/10/18 17:31 [facility] [email or web address]) OT- Subjective Occupational Therapy Visit Type Type Treatment Note Visit Start Time 16:05 Visit Stop Time 16:55 Total Visit Minutes 50 Occupational Therapy Visit Comments Patient Comments Pt's daughter present for caregiver training for showering and dressing needs. OT Pain Assessment Pain When Pain Assessed During Mobility Pain Present Pain Present Pain Reported Location Back Intensity 8 Scale Used Numeric (1 - 10) M4 OT- IP ADL's Start: 09/09/18 15:19 Freq: Status: Active Protocol: Document 09/10/18 16:05 [facility] (Rec: 09/10/18 17:31 [facility] [id number]) OT ADL-Dressing General Eval Upper Body Dressing Ability Minimal Assistance Lower Body Dressing Ability Maximum Assistance Areas Needing Assistance Pull-Over Shirt Underpants/Brief Socks Comments OT Dressing Comments Pt just wanting to shower and have daughters assist for needs as getting too tired. OT ADL-Bathing Bathing Type Bathing Type Shower General Evaluation Bathing Ability Maximal Assistance Areas Needing Assistance Retrieving/Setting Up Items Wash/Dry Back Wash/Dry Perineal Area Wash/Dry Lower Extremities Devices Bathing Equipment Hand Held Shower Sprayer Shower Chair with Arms Grab Bars Comments OT Bathing Comments Both daughters in the shower to assist. In was determined after tried to be able to step over simulated tub with grab bar that pt will benefit from use of tub transfer bench for safety, M6 OT- IP Functional Cognition Start: 09/09/18 15:19 Freq: Status: Active Protocol: Document 09/10/18 16:05 [facility] (Rec: 09/10/18 17:31 [facility] [id number]) Cognitive Factors Limiting Selfcare Function Cognitive Ability Level of Alertness Alert Patient Orientation Name Place Situation Attention Span Ability Capable of Focused Attention Unable to Sustain Attention Ability to Follow Commands Able to Follow One Step Commands with Increased Time Able to Follow One Step Commands with Repetition Memory Description Short Term Impaired Safety Awareness Decreased Ability to Apply Precautions Underestimates Need for Assistance Problem Solving Ability Unable to Identify Errors Needs Assist to Identify Solutions Cognitive Comments Cognitive Assessment Comments Pt continues to need step by step instructions for safety to come to stand, in addition educated pt's daughters not to pull her up by under her arms and that gait belt would be more helpful and safer just in case pt were to fall. In addition showed pt's daughter how to assist from pt's hips as well to help stand or sit if needed and if gait belt not available. Encouraged family to take gait belt home to use. Pt tends not to lean forwards enough with back straight and hard time to straighten out her legs when coming to stand and still needing from MODA x1 -2 to MAX x1. M7 OT- IP Mobility and Balance Start: 09/09/18 15:19 Freq: Status: Active Protocol: Document 09/10/18 16:05 [facility] (Rec: 09/10/18 17:31 [facility] [email or web address]) OT-Transfer Assessment Sit to and From Stand Sit to and from Stand Moderate Assistance Maximum Assistance 1 Person Assistance Transfers Transfer Ability Standby Assistance Contact Guard Assistance 1 Person Assistance Technique Transfer Destination Chair Shower Stall Comments Mobility Comments Once up on her feet CGA to help step over threshold of shower with FWW. OT- Balance Assessment Sitting Balance and Reactions Static Sitting Balance Ability Normal Dynamic Sitting Balance Ability Good Standing Balance and Reactions Static Standing Balance Ability Good M8 OT- IP Objective Assessments Start: 09/09/18 15:19 Freq: Status: Active Protocol: Document 09/09/18 15:20 [facility] (Rec: 09/09/18 15:46 [facility] [id number]) OT Gross Range of Motion Upper Extremity Range of Motion Assessment Within Functional Limits M9 OT- IP Assessment and Plan Start: 09/09/18 15:19 Freq: Status: Active Protocol: Document 09/10/18 16:05 [facility] (Rec: 09/10/18 17:31 [facility] [email or web address]) OT Summary Assessment and Plan Potential Rehabilitation Potential Good Analytic Complexity at Evaluation Low Summary OT Impairments Pain Functional Cognition Functional Mobility Dressing Toileting Bathing Toilet Transfers Shower Transfers Progress Towards Goals Progressing Toward Goals Assessment Summary Pt's daughters have been trained to assist for all ADl needs and good understanding for equipment needs. Pt's daughter will continue to benefit from mobility training with PT prior to discharge home with family. Goals Grooming Goal Independent Dressing Goal Standby Assistance Toileting Goal Standby Assistance Bathing Goal Minimal Assistance Toilet Transfer Goal Standby Assistance Shower Transfer Goal Contact Guard Assistance Patient/Caregiver Education Goal Demonstrate Post-Op Precautions Caregiver Independent Assisting Patient Days to Meet Goals 2 Frequency of Treatment Frequency Of Treatment Once a Day Treatment Plan OT Treatment Plan ADL Training Functional Cognition Training Functional Mobility Patient/Family Education Discharge Planning Discharge Recommendations OT Discharge Recommendations Home with 08/02 Assist
[2018-09-10] MEDS: PRAMIPEXOLE 0.25 MG TABLET 0.5 MG PO (20:08)
[2018-09-10] MEDS: SENNOSIDES 8.6 MG TABLET 17.2 MG PO (20:08)
[2018-09-10 20:09] VITALS: BP 143/71; PULSE 97
[2018-09-10] MEDS: ZOLPIDEM 5 MG TABLET 10 MG PO (20:11)
[2018-09-11] VITALS: BP 140/64; PULSE 84; RESP 15; TEMP 36.7; O2SAT 95
[2018-09-11 03:50] VITALS: BP 151/60; PULSE 96; RESP 16; TEMP 37.1; O2SAT 97
[2018-09-11 07:35] VITALS: BP 137/55; PULSE 98; RESP 13; TEMP 37.4; O2SAT 95
[2018-09-11] MEDS: OXYCODONE IR 5 MG TABLET 10 MG PO ×2 (07:46→12:06)
[2018-09-11] MEDS: ACETAMINOPHEN 325 MG TABLET 650 MG PO (07:47)
[2018-09-11] MEDS: hydrOXYzine pamoate 25 MG CAPSULE PO ×2 (07:53→12:06)
[2018-09-11] MEDS: POTASSIUM CHLORIDE 10 MEQ TAB PO (08:38)
[2018-09-11] MEDS: DOCUSATE 100 MG CAPSULE PO (08:38)
[2018-09-11] MEDS: LOSARTAN 50 MG TABLET PO (08:38)
[2018-09-11] MEDS: hydroCHLOROthiazide 25 MG TABLET PO (08:38)
[2018-09-11] MEDS: AMLODIPINE 5 MG TABLET PO (08:39)
[2018-09-11] MEDS: VENLAFAXINE ER 75 MG CAP 225 MG PO (08:39)
[2018-09-11] MEDS: SODIUM CHLORIDE 0.9% FLUSH 10 ML IV (08:44)
--- NOTE | 2018-09-11 08:53 | PT.IPTN ---
Current Diagnoses Spondylolisthesis, lumbar region (09/08/18) Other spondylosis with radiculopathy, lumbar region (09/08/18) Spinal stenosis, lumbar region with neurogenic claudication (09/08/18) Arthrodesis status (09/08/18) Surgery Performed Operation Date: 09/08/18 07:45 Actual Procedures p L4-5, L5-S1 TLIF w/posterior dwayne Claudio MD Physical Therapy Treatment Note M2 PT-IP Current Condition Start: 09/08/18 16:28 Freq: NEEDED Status: Active Protocol: Document 09/08/18 15:30 AB (Rec: 09/08/18 16:38 AB [id number]) Physical Therapy Current Condition Current Condition Evaluation Date 09/08/18 Treatment Diagnosis L4-S1 fusion/lami; difficulty in walking Onset Date 09/08/18 Precautions Lumbar Precautions Log Roll No Twisting Limit Bending Lifting Restriction of 10 lbs Gait Belt above Incisional Area M3 PT-IP Subjective Start: 09/08/18 16:28 Freq: NEEDED Status: Active Protocol: Document 09/11/18 08:53 [facility] (Rec: 09/11/18 10:23 [facility] [id number]) Subjective Physical Therapy Visit Type Type Treatment Note Visit Start Time 08:53 Visit Stop Time 09:25 Total Visit Minutes 32 Number of SLIVER LAP TENDER Visits 0 Physical Therapy Visit Comments Patient Comments pt states that she was having a [place] Horse in her hamstrings last night, she can feel it today but no c/o a spasm with ambulation Therapy Pain Assessment Pain When Pain Assessed During Weight Bearing Pain Present Pain Present Pain Reported M4 PT-IP Mobility and Gait Start: 09/08/18 16:28 Freq: NEEDED Status: Active Protocol: Document 09/11/18 08:53 [facility] (Rec: 09/11/18 10:23 [facility] [id number]) PT-Bed Mobility Assessment Rolling Type of Rolling Log Rolling Roll to Right Level of Assist Contact Guard Assistance Supine to Sit Supine to Sit Contact Guard Assistance Bedrails Scooting Scooting to Edge of Bed Standby Assistance PT-Transfer Assessment Sit to and From Stand Sit to and from Stand Contact Guard Assistance Use of Upper Extremities Equipment Transfer Assistive Device Bed Rail Front Wheeled Walker Orthotic/Prosthetic Devices or Brace: No Transfers Transfer Destination Chair Toilet Transfer Ability Level of Assist Contact Guard Assistance Comments Mobility Comments Daughter assisted with log roll with PT supervision, daughter also assisted pt to toilet where she voided (RN notified) and flatus but no BM Gait Assessment Gait Gait Assistance Required: Contact Guard Assist Distance (Feet) 80 Assistive Devices Assistive Device Gait Belt Front Wheeled Walker Orthotic/Prosthetic Devices or Brace: No Gait Deviations General Gait Pattern Ataxic Decreased Stride Length Decreased Feet Clearance Factors Limiting Gait Function Factors Limiting Gait Function Decreased Activity Tolerance Decreased Strength Pain Poor Balance Comments Gait Comments slow paced gait M5 PT-IP Objective Assessments Start: 09/08/18 16:28 Freq: NEEDED Status: Active Protocol: Document 09/08/18 15:30 AB (Rec: 09/08/18 16:38 AB [id number]) Orientation Orientation/Cognition Level of Alertness Alert Orientation Name Age Birthday Place Situation Language Function Ability No Deficits Noted Safety Awareness Understands Safety Issues Gross Range of Motion Lower Extremity ROM Assessment Within Functional Limits Strength Lower Extremity Strength Assessment Within Functional Limits Coordination Assessment Gross Coordination Gross Coordination WNL Sensation Assessment Sensation Gross Sensation WNL Muscle Tone Muscle Tone WNL Yes M6 PT-IP Treatment Start: 09/08/18 16:28 Freq: NEEDED Status: Active Protocol: Document 09/11/18 08:53 [facility] (Rec: 09/11/18 10:23 [facility] [id number]) Physical Therapy Treatment Education Education Provided Precautions Safety Other Treatments Other Treatment Performed CG training with VC for bed mobility and STS M7 PT-IP Assessment and Plan Start: 09/08/18 16:28 Freq: NEEDED Status: Active Protocol: Document 09/11/18 08:53 [facility] (Rec: 09/11/18 10:23 [facility] [id number]) PT Summary Assessment and Plan Summary Assessment Summary CG training completed with daughter, daughter able to safely assist pt with log roll and sit to stand with good body mechanics. Pt able to tolerate household gait distances, although appears hesitant to progress further this session due to fear of increased spasm in L hamstrings. Pt is cleared to d /c home when medically stable with assistance from family. Goals Bed Mobility Goal Independent Transfer Goal Independent Front Wheeled Walker Gait Goal Standby Assistance Front Wheel Walker Gait Distance 151 Frequency of Treatment Frequency Of Treatment Twice a Day Treatment Plan Other Recommendations and Next Treatment cont. CG training- log roll in Focus /out of bed, progress gait tolerance Recommendations To Nursing Amount of Assist Needed 1 Person Assist Discharge Recommendations PT Discharge Recommendations Home with Assistance
--- NOTE | 2018-09-11 10:39 | PM.PNPO.1 ---
Subjective Date Patient Seen: 09/11/18 Time Patient Seen: 10:21 Interval history: Patient is postoperative day 3 TLIF. Patient is doing much better today. Was having a lot of spasms to the buttocks which has resolved with some Vistaril. Has been up and moving around quite well with physical therapy. Exam Vital Signs (past 8 hours): - 09/11/18 03:50 09/11/18 07:35 Temperature 98.8 F 99.3 F Pulse Rate 96 H 98 H Respiratory Rate 16 13 Blood Pressure 151/60 H 137/55 L Pulse Oximetry 97 95 Oxygen Delivery Method Room Air Oxygen Flow Rate 0 Narrative Exam Narrative: On physical exam, patient is alert and oriented x3. Very good pain control. Positive dorsiflexion plantar flexion of the toes and ankles. 5/5 strength in dorsiflexion and plantar flexion. Nontender to palpation of the posterior aspect of the calves. Good range of motion and strength in knee flexion and extension. Dressing is clean and dry. Palpable pedal pulses. Objective Labs Result Diagrams: 09/09/18 06:01 Assessment & Plan Post-op Postoperative Procedures Operation Date: 09/08/18 07:45 Actual Procedures Side Surgeon p L4-5, L5-S1 TLIF w/posterior instru Dorothy Claudio MD Postoperative day: 3 Postoperative status: doing well Postoperative status narrative: Patient doing well after surgery. Patient will be discharged home today. Postoperative plan: see orders Time Spent With Patient less than 15 minutes
[2018-09-11 11:10] VITALS: BP 115/71; PULSE 96; RESP 16; TEMP 37.1; O2SAT 93
--- NOTE | 2018-09-11 12:10 | PC.NURSE ---
Day shift: Phoned Dr Nic Horton for the Pt as a MD script. He said he would fax the order to [facility] in [place].
--- NOTE | 2018-09-11 13:05 | PC.NURSE ---
Day shift: Pt left unit at approx 1300 via WC w/ RADIO PROGRAM DIRECTOR and Pt's daughter to private vehicle. Paperwork signed and all questions answered. Pt has all personal belongings. Daughter was given oxycodone script yesterday. Pt also just medicated for pain prior to leaving.
--- NOTE | 2018-09-22 09:42 | PM.DS.1 ---
History of Present Illness Date Patient Seen: 09/22/18 Time Patient Seen: 09:42 Chief complaint: [id number] Narrative: hospital day 4, postop day 3 following L4-5, L5-S1 laminectomy, TLIF, cage, posterior screw fixation. Patient doing better for this time. Did have Romero catheter in place for the 1st 2 days and voiding well. Progressed with physical therapy. Ready for discharge home today. Discharge Providers Date of admission: 09/08/18 05:51 Discharge Date: 09/11/18 Primary care physician: Silva Reese MD Consults: 09/01/18 10:15 Consult to Respiratory Therapy Evaluate & Treat Comment: Surg 09/08-Sleep apnea-does not tolerate CPAP Physician Instructions: Evaluate and treat 09/08/18 07:12 Consult to Respiratory Therapy Evaluate & Treat Comment: Physician Instructions: Evaluate and treat 09/08/18 13:11 Consult to Occupational Therapy Evaluate & Treat Comment: Physician Instructions: Evaluate and treat Consult to Physical Therapy Evaluate & Treat Comment: Physician Instructions: Evaluate and Treat Discharge provider: Ildefonso Chisholm PA-C Summary Discharge Diagnosis: Status post L4-5, L5-S1 laminectomy, TLIF, cage, posterior screw fixation Hospital Course: patient brought to hospital on 09/08/2018 for above noted surgery. She remained stable postoperatively. Romero catheter remained in for 2 days postop. Progress slowly with physical therapy. Patient was ready for discharge home on postop day 3. Status at Discharge Cognitive/behavioral status at discharge: oriented Functional status at discharge: uses cane/walker Overall status at discharge: patient is progressing back to baseline Time Spent with Patient Less than 30 minutes Exam Vital Signs (past 8 hours): Oxygen Delivery Method Room Air Oxygen Flow Rate 0 Objective Labs Result Diagrams: 09/09/18 06:01 Discharge Plan Discharge Plan Patient Disposition: Home Discharge comment: DC home wednesday Discharge Med Rec/Prescriptions Prescriptions: New acetaminophen 325 mg Tablet 650 mg PO Q6HR PRN (Reason: Pain, Mild (1-3)) Qty: 60 RF: 0 docusate sodium 100 mg Capsule 100 mg PO BID Qty: 60 RF: 0 oxycodone 5 mg capsule 5 mg PO Q4-6H PRN (Reason: pain) Qty: 60 RF: 0 Continued losartan 50 mg Tablet 50 mg PO BID RF: 0 potassium chloride 10 mEq Tablet Extended Release 10 meq PO DAILY RF: 0 amlodipine 5 mg Tablet 5 mg PO DAILY RF: 0 aspirin 81 mg Tablet,Delayed Release (Dr/Ec) 81 mg PO DAILY RF: 0 pramipexole 0.5 mg Tablet 0.5 mg PO BEDTIME RF: 0 ranitidine HCl 150 mg Tablet 150 mg PO BID RF: 0 hydrochlorothiazide 25 mg Tablet 25 mg PO DAILY RF: 0 zolpidem 12.5 mg Tablet,Ext Release Multiphase 12.5 mg PO BEDTIME RF: 0 venlafaxine 225 mg Tablet Extended Release 24hr 225 mg PO QAM RF: 0 Discontinued meloxicam 7.5 mg Tablet 7.5 mg PO BID RF: 0 Follow up/Referrals: Dorothy Claudio MD [Physician] - (Follow up in 10-14 days) Silva Reese MD [Primary Care Provider] - Provider Discharge Instructions Diet: Diet as Tolerated Activity: No excessive bending, lifting, or twisting Cold/Heat Therapy: as needed Skin/Wound/Dressing Care Report to your healthcare provider any signs of infection, such as:: chills, fever and increased pain Dressing: keep in place until post op appointment Visit Report/Discharge Packet Instructions: Stool Softeners, Acetaminophen, Oxycodone, Hydroxyzine, DI for Transforaminal Lumbar Interbody Fusion Discharge Data Primary Care Provider: Silva Reese Attending Provider: Dorothy Claudio Admit Date/Time: 09/08/18 05:51 Discharges patient from system. Discharge Date/Time: 09/11/18 13:07
== END 2018-09-11 13:07 | disposition home or self-care (01) | DRG 455 ==
PROVIDERS: Admitting Provider Orthopaedic Surgery Orthopaedic Surgery of the Spine; Family Provider Internal Medicine Geriatric Medicine; PCP Internal Medicine Geriatric Medicine; Visit Provider Orthopaedic Surgery Orthopaedic Surgery of the Spine
PROC: 0SG00AJ Fusion of Lumbar Vertebral Joint with Interbody Fusion Device, Posterior Approach, Anterior Column, Open Approach (ICD-10-PCS; principal; 2018-09-08 07:45)
DX: M48.061 Spinal stenosis, lumbar region without neurogenic claudication (principal); M43.16 Spondylolisthesis, lumbar region; E11.9 Type 2 diabetes mellitus without complications; G25.81 Restless legs syndrome; I10 Essential (primary) hypertension; K21.9 Gastro-esophageal reflux disease without esophagitis; G47.33 Obstructive sleep apnea (adult) (pediatric); M43.17 Spondylolisthesis, lumbosacral region; M48.07 Spinal stenosis, lumbosacral region
CPT/HCPCS: 36415; 72100; 76000; 82962; 85014; 85018; 94760; 97116; 97161; 97165; 97530; 97535; C1776; C9290; J0131; J0330; J0690; J1100; J1170; J2250; J2405; J2704; J3010

== ENCOUNTER 2018-12-29 09:34 | Inpatient (IN) | payer MEDICARE, OTHER, SELFPAY ==
[2018-09-08 13:38] VITALS: BMI 40.4
[2018-12-28 09:26] VITALS: BMI 40.7
[2018-12-29] VITALS (16 sets, daily range): BP systolic 119–177; BP diastolic 48–81; PULSE 85–97; RESP 10–17; TEMP 36.1–37; O2SAT 92–97; BMI 40.0
--- NOTE | 2018-12-29 | DI.RAD.S_ITS ---
PROCEDURE: XR LUMBAR SPINE 2-3V INDICATIONS: L3-4 TLIF TECHNIQUE: 2 views of the lumbar spine were acquired. COMPARISON: [facility], CT, CT LUMBAR SPINE WITHOUT CONTRAST, 12/26/2018, 9:27. [facility], CR, XR LUMBAR SPINE 2 OR 3 VIEWS, 12/20/2018, 9:08. [facility], CR, XR LUMBAR SPINE 2-3V, 09/08/2018, 8:25. FINDINGS: 2 intraoperative fluoroscopy images demonstrate discectomy and posterior fusion at L3-L4, L4-L5 and L5-S1. Pedicle screws and tortuosity are in appropriate position. IMPRESSION: Discectomy and posterior fusion at L3-L4, L4-L5 and L5-S1. Dictated by: Oliva Larios M.D. on 12/29/2018 at 16:39 Approved by: Oliva Larios M.D. on 12/29/2018 at 16:40
[2018-12-29] MEDS: LACTATED RINGERS 1,000 ML 42 ML IV ×2 (10:55→14:15)
--- NOTE | 2018-12-29 11:44 | PM.PREOP ---
Pre-operative Note Interval Note History & Physical reviewed/Exam performed by Physician: Yes Changes to H&P: No
[2018-12-29 11:46] LABS: HEMOLYSIS 19 (0-50); Potassium 3.7 mmol/L (3.4-5.1); Sodium 140 mmol/L (137-145)
[2018-12-29] MEDS: CEFAZOLIN 2 GM/100 ML FROZ.PIGGY IV ×2 (12:05→20:03)
--- NOTE | 2018-12-29 12:44 | SUR.OPER ---
Prone on spine table, head in foam head support, padded chest and pelvic supports, gel pad at knees and between heels, lower legs supported by pillows; nipples, genitalia and toes free of pressure, arms secured on foam padded arm boards at <90 degrees abduction. Tape over blanket at thigh secured to table.
[2018-12-29] MEDS: BUPIVACAINE LIPOSOME 266 MG/20 ML VIAL INJ (12:50)
[2018-12-29] MEDS: BUPIVACAINE 0.25% W/ EPI 30 ML VIAL INJ (12:50)
--- NOTE | 2018-12-29 15:23 | PM.OP.1 ---
Operative Date/Time/Diagnoses Date of procedure: 12/29/18 Time of procedure: 12:23 Pre-op diagnosis: 1. L4 pedicle screw loosening 2. L3-4 spinal stenosis 3. L4-5, L5-S1 pseudoarthrosis 4. Lumbar spondylosis with radiculopathy Post-op diagnosis: same Procedure & Clinicians Procedure: 1. L3-4 posterolateral and posterior interbody fusion 2. L3-4 posterior interbody cage placement 3. L4-5, L5-S1 posterior segmental instrumentation removal 4. L4-5, L5-S1 revision laminectomy with exploration of fusion 5. L3-4, L4-5, L5-S1 posterior segmental instrumentation with pedicle screw placement 6. L4-5, L5-S1 posterolatearl fusion 7. Buckland of bone marrow from iliac crest through a separate incision 8. Utilization of microsurgical technique and operating microscope Same procedure as scheduled: Yes Indications: Patient has been having chronic back pain and worsening lumbar radiculopathy. Patient is 4 months post L4-5 L5-S1 fusion with gradual loosening of the L4 pedicle screws and breaching through the endplate. Patient failed multiple conservative management with worsening pain weakness and numbness in her lower extremity. Patient has been having difficulty performing activity of daily living. After discussing risks benefits of treatment options, patient elected proceed with surgery. Surgeon: Dorothy Claudio [employer] Supervisor: Leila Fairbanks Click Yes if Unassisted: No Anesthesia Type: General Operative Notes Closure Type: primary Specimen(s): none sent Prosthetic devices, grafts, tissues, transplants, or devices: Globus revolve screws, Rise cage Applied: catheter Estimated Blood Loss (mL): 350 Blood products transfused: none Procedure in detail: Patient was seen in the preoperative area. Risks and benefits of the surgery was discussed with the patient. Informed consent was obtained from the patient and placed in the chart. Surgical site was marked. Patient was taken to the operative room. General anesthesia was administered. Prophylactic antibiotic was given to the patient less than 30 min before the incision was made. Patient was placed into a prone position on the Mitchell table. Patient's back was then prepped and draped in the sterile fashion. Time-out was performed at this time. Using patient's previous scar incision was made over the L3-4, L4-5, L5-S1 interval on the right side. Fascia was incised in line with skin incision. Patient's previously placed hardware over the L4-5, L5-S1 level was identified by dissecting down to the level the hardware using a Bovie and a Weems. The locking caps which was removed using globus screwdriver. The locking tomas was then removed from the tulips of the pedicle screws using a Analisa. The pedicle screws were then removed using the screwdriver. The screws were found to have loose purchase. The Globus and MARS retractors was then placed into the wound and docked onto the L3 lamina using C-arm guidance. Using microsurgical technique and operating microscope a laminectomy facetectomy was performed by removing the L3 lamina and the L3-4 facet. The disc space at L3-4 level was identified next. And a total diskectomy was performed at L3-4 level. The endplates were decorticated using a rasp and shaver. The total diskectomy and decortication was performed at L3-4 level in order to to accomplish a L3-4 fusion. The local bone from the laminectomy and facetectomy was saved for local bone grafting. After the total diskectomy and decortication was completed, Bio4 bone graft material was combined with local bone that was harvested earlier. At this time, a separate skin is incision was made over the iliac crest. A Jamshidi needle was inserted into the iliac crest through a separate skin incision. 5 cc of bone marrow aspiration was obtained through the separate skin incision using a Jamshidi needle from the iliac crest. The bone marrow aspiration was combined with local bone and the via cell bone grafting material. The bone grafting material was placed into the L3-4 interbody space along with a expandable cage. The cage was expanded to its maximum height using the torque limiting screwdriver. At this time a mirror image incision was made on the left side. The fascia was incised in line with the skin incision. Patient's previously placed hardware on the left side was then removed in the same fashion as it was on the right side. The hardware was also found to have loose purchase. The fusion mass on the left side was exposed by performing a left-sided hemilaminectomy at L4-5 L5-S1 level. The hemilaminectomy was performed using the Kerrison rongeur to undercut the lamina as well removing additional epidural scar tissue for purpose of decompressing the epidural space. The fusion mass was explored and was found have visible motion indicating pseudoarthrosis. Globus MARS retractor was inserted and docked onto the L3-4 L4-5 L5-S1 posterolateral gutter. Using the power drill, posterior-lateral decortication was performed at L3-4 L4-5 L5-S1 level until bleeding cortical bone was identified. The remaining bone grafting material was placed into the L3-4-L4-5 L5-S1 posterior lateral gutter he order to accomplish posterolateral fusion at the L3-4-L4-5 L5-S1 level. Using the double C-arm technique, pedicle screws were placed into the L3, L4, L5, S1 pedicles bilaterally. This was done by placing the Jamshidi needle into the pedicles, then placing the guidewires over the Jamshidi needle, and finally placing the cannulated screws over the guidewires bilaterally. After the pedicle screws were placed, 2 titanium rods was locked into the heads of the pedicle screws using locking caps and torque limiting screwdriver. After all the hardware was placed, and confirmed with AP and lateral C-arm imaging, the wound was then irrigated with sterile normal saline and packed with Ray-Bruno gauze for 3 min to accomplish hemostasis. After the gauze was removed the deep fascia was closed with #1 Vicryl suture. The subcutaneous layer was closed with 2-0 Vicryl. The skin was closed with skin nai. Patient tolerated the procedure well. There were no complications. Complications: none Condition: stable Disposition: PACU Plan for aftercare: Admit to inpatient hospital
[2018-12-29] MEDS: HYDROMORPHONE 2 MG INJ 0.5 MG IV ×4 (15:50→16:10)
[2018-12-29] MEDS: hydrOXYzine 50 MG/ML INJ 25 MG IM (16:06)
[2018-12-29] MEDS: SODIUM CHLORIDE 0.9% 1,000 ML 100 ML IV (17:47)
[2018-12-29] MEDS: DOCUSATE 100 MG CAPSULE PO (20:59)
[2018-12-29] MEDS: LOSARTAN 50 MG TABLET PO (21:00)
[2018-12-29] MEDS: PRAMIPEXOLE 0.25 MG TABLET 0.5 MG PO (21:00)
[2018-12-29] MEDS: SENNOSIDES 8.6 MG TABLET 17.2 MG PO (21:00)
[2018-12-29] MEDS: OXYCODONE IR 5 MG TABLET PO (21:04)
[2018-12-29] MEDS: hydrOXYzine pamoate 25 MG CAPSULE PO (21:05)
[2018-12-29] MEDS: ZOLPIDEM 5 MG TABLET 12.5 MG PO (21:12)
[2018-12-30] VITALS (8 sets, daily range): BP systolic 106–153; BP diastolic 50–88; PULSE 84–99; RESP 16–18; TEMP 36.4–36.9; O2SAT 92–97
[2018-12-30] MEDS: CEFAZOLIN 2 GM/100 ML FROZ.PIGGY IV (04:10)
[2018-12-30] MEDS: SODIUM CHLORIDE 0.9% 1,000 ML 100 ML IV (04:11)
[2018-12-30 05:48] LABS: Hematocrit 32.6 % (36-46); Hemoglobin 10.6 g/dL (12.0-16.0)
[2018-12-30] MEDS: AMLODIPINE 5 MG TABLET PO (08:04)
[2018-12-30] MEDS: LOSARTAN 50 MG TABLET PO ×2 (08:04→20:42)
[2018-12-30] MEDS: hydroCHLOROthiazide 25 MG TABLET PO (08:05)
[2018-12-30] MEDS: POTASSIUM CHLORIDE 10 MEQ TAB PO (08:05)
[2018-12-30] MEDS: VENLAFAXINE ER 75 MG CAP 225 MG PO (08:05)
[2018-12-30] MEDS: ACETAMINOPHEN 325 MG TABLET 650 MG PO ×2 (08:06→18:17)
[2018-12-30] MEDS: OXYCODONE IR 5 MG TABLET PO ×3 (08:06→16:35)
[2018-12-30] MEDS: DOCUSATE 100 MG CAPSULE PO (08:08)
--- NOTE | 2018-12-30 08:11 | PM.PNPO.1 ---
Subjective Date Patient Seen: 12/30/18 Time Patient Seen: 08:11 Interval history: Patient is POD#1 s/p L4-5, L5-S1 TLIF with Dr. Claudio. Her pain has been well controlled with oxycodone and Vistaril. She has not yet mobilized with PT but has moved to the chair twice with minimal difficulty. She states she had severe muscle spasms after last surgery but has not had any issues with this as of yet. She denies any chest pain, shortness of breath, calf pain. Exam Vital Signs (past 8 hours): - 12/30/18 05:08 12/30/18 08:04 Temperature 98.2 F Pulse Rate 87 Respiratory Rate 16 Blood Pressure 153/71 H 127/88 Pulse Oximetry 95 Oxygen Delivery Method Nasal Cannula Oxygen Flow Rate 1.5 Narrative Exam Narrative: Pleasant 73 year old female sitting comfortably in chair. Alert and oriented in no acute distress. Dressing in place is clean, dry, and intact. Able to flex/extend the foot. Sensation intact to light touch in distal extremities. Pulses are symmetric with soft, compressible calves. Objective Labs Result Diagrams: 12/30/18 05:26 12/29/18 11:37 Labs: Laboratory Results - last 24 hr 12/29/18 12/30/18 11:37 05:26 Hgb 10.6 L Hct 32.6 L Sodium 140 Potassium 3.7 Assessment & Plan Post-op Postoperative Procedures Operation Date: 12/29/18 12:15 Actual Procedures Side Surgeon p L3-4 TLIF; L4-5,L5-S1 HWR; L3-4,L4-5,L5-S1 PSF w/Instru. Dorothy Claudio MD Patient doing well. Goals for today are to mobilize with PT and continue excellent pain control. Possible d/c urinary catheter today if she mobilizes well, otherwise will remove tomorrow. Discharge scripts for Oxycodone and Vistaril given to patient's daughter to fill today as they have difficulty with their local pharmacy.
--- NOTE | 2018-12-30 08:44 | PM.PN.1 ---
Exam Vital Signs (past 8 hours): - 12/30/18 05:08 12/30/18 08:04 Temperature 98.2 F Pulse Rate 87 Respiratory Rate 16 Blood Pressure 153/71 H 127/88 Pulse Oximetry 95 Oxygen Delivery Method Nasal Cannula Oxygen Flow Rate 1.5 Objective Labs Result Diagrams: 12/30/18 05:26 12/29/18 11:37 Labs: Laboratory Results - last 24 hr 12/29/18 12/30/18 11:37 05:26 Hgb 10.6 L Hct 32.6 L Sodium 140 Potassium 3.7 Assessment & Plan Assessment & Plan narrative: Patient is admitted after surgery. Patient has been stable and progressing with physical therapy. Patient is neurovascularly intact on exam. Patient has no signs or symptoms of DVT. Patient's dressing is clean dry and intact. PT for mobility training. Pain well controlled with current medications. Will re-assess and decide whether disposition to home vs rehab tomorrow.
--- NOTE | 2018-12-30 10:59 | PT.IIE ---
Current Diagnoses Spinal stenosis, lumbar region without neurogenic claudication (12/29/18) Other mechanical complication of other internal orthopedic devices, implants and grafts, initial encounter (12/29/18) Arthrodesis status (12/29/18) Surgery Performed Operation Date: 12/29/18 12:15 Actual Procedures p L3-4 TLIF; L4-5,L5-S1 HWR; L3-4,L4-5,L5-S1 PSF w/Instru. - Dorothy Claudio MD Surgical History (Last Updated 12/28/18 @ 09:33 by Karon Clay RN) History of lumbar fusion (Acute 09/08/18) History of arthroplasty of right knee (Acute ~2014) History of nasal surgery (Acute) Hx of bladder repair surgery (Acute) Hx of cholecystectomy (Acute) Hx of thumb surgery (Acute) Hx of tonsillectomy (Acute) Status post cataract extraction of both eyes with insertion of intraocular lens (Acute) Medical History (Last Updated 09/01/18 @ 09:38 by Karon Clay RN) Aortic stenosis, mild (Acute) Arthritis (Acute) Breast cancer, right (Acute ~1995) Bronchospasm (Acute) Chronic bronchitis (Acute) Depression (Acute) Diabetes (Acute) Eczema (Acute) GERD (gastroesophageal reflux disease) (Acute) Glaucoma (Acute) HTN (hypertension) (Acute) Hyperlipidemia (Acute) IBS (irritable bowel syndrome) (Acute) Mitral stenosis (Acute) Nephrolithiasis (Acute) Pneumonia (Acute) RLS (restless legs syndrome) (Acute) Sciatica (Acute) Sleep apnea (Acute) Physical Therapy Inpatient Evaluation/Re-Eval M1 PT/OT-IP Prior Functional Status Start: 12/30/18 08:24 Freq: NEEDED Status: Active Protocol: Document 12/30/18 08:40 (Rec: 12/30/18 10:58 [email or web address]) Medical Review Prior Functional Status Medical History Reviewed Yes Diet/Fluid Consistency Regular Communication able to make needs known. Mobility and Gait Stated that she is independent with all mobilities. Does use 4ww for long walk. Activities of Daily Living and IADL's Independent with ADLs and IADLs. Social History Household Members none Living Arrangements Apartment/Condo Number of Floors (Floors) One Floor Number of Stairs To Enter/Railing? no ALBERTO Home Environment High Toilet Tub/Shower Home Equipment Front Wheel Walker Four Wheel Walker Straight Cane Raised Toilet Seat Without Armrests Tub Transfer Bench Shower Seat with Backrest Hand Held Shower Home Restoration Service Supervisor Bed Rails Grab Bars Near Toilet Grab Bars In Shower Employment Status Retired Additional Social History Comment Pt lives alone in [place] . She had L4-S1 fusion/lami in Aug this year at [facility]. However, she reports there's loosening of one screw which possibly gave her occasional achy pain at buttocks and muscle cramp since then. She also c/o ankle weakness that decreased her balance in general after sx. She was overall independent for the past few months and used 4WW for long walks only. Pt will have her daughters assist her at home as long as pt needed. She also has R side bed rail. M2 PT-IP Current Condition Start: 12/30/18 08:24 Freq: NEEDED Status: Active Protocol: Document 12/30/18 08:40 [facility] (Rec[facility] 12[facility]30/18 [email or web address] Therapy Current Condition Current Condition Evaluation Date 12/30/18 Treatment Diagnosis L3-L4 TLIF, difficulty in walking Onset Date 12/29/18 Precautions Lumbar Precautions Log Roll No Twisting Limit Bending Lifting Restriction of 10 lbs Gait Belt above Incisional Area Weight Bearing Status Weight Bearing Status Weight Bear as Tolerated M3 PT-IP Subjective Start: 12/30/18 08:24 Freq: NEEDED Status: Active Protocol: Document 12/30/18 08:40 HH (Rec: 12/30/18 10:58 [email or web address]) Subjective Physical Therapy Visit Type Type Initial Evaluation Visit Start Time 08:40 Visit Stop Time 09:10 Total Visit Minutes 30 Notes Pt's dtr Pily at bedside upon assessment. Pt got OOB with log roll method to chair twice this morning with 1PA. Number of CANVAS CUTTER MACHINE Visits 0 Physical Therapy Visit Comments Patient Comments I feel pretty good today. Patient Goals To return home with dtrs. Therapy Pain Assessment Pain When Pain Assessed During Mobility Pain Present Pain Present Pain Reported Location Back Intensity 3 Scale Used Numeric (1 - 10) Description Acute Pain Management Techniques Modification of Treatment Re-positioning Timing of Activity with Medications M4 PT-IP Mobility and Gait Start: 12/30/18 08:24 Freq: NEEDED Status: Active Protocol: Document 12/30/18 08:40 HH (Rec: 06/14/19 10:58 [email or web address]) PT-Bed Mobility Assessment Supine to Sit Supine to Sit Bedrails PT-Transfer Assessment Sit to and From Stand Sit to and from Stand Minimal Assistance Use of Upper Extremities Equipment Transfer Assistive Device Gait Belt Front Wheeled Walker Orthotic/Prosthetic Devices or Brace: No Transfers Transfer Destination Chair Transfer Technique Stand Step Pivot Transfer Ability Level of Assist Minimal Assistance Use of Upper Extremities Comments Mobility Comments Pt was up in chair upon assessment. She required min A for sit to stand from bedside low chair. Cues required to avoid excessive trunk flexion and facilitation of LEs push off. Pt also needed cues for hand placements on chair armrest for slow descent from stand to sit. She overall performed transfers slowly. Gait Assessment Gait Gait Assistance Required: Contact Guard Assist Distance (Feet) 90 Able to Maintain Weight Bearing Status Yes During Gait Assistive Devices Assistive Device Gait Belt Front Wheeled Walker Orthotic/Prosthetic Devices or Brace: No Gait Deviations General Gait Pattern Antalgic Decreased Stride Length Decreased Feet Clearance Step-to Gait Factors Limiting Gait Function Factors Limiting Gait Function Decreased Activity Tolerance Decreased Strength Limited Range of Motion Pain Poor Balance Poor Safety Awareness Comments Gait Comments Pt got up from chair and amb in the hallway for a total of 90 ft with FWW CGA. Pt used step to pattern and amb slowly due to pain at R buttock. Noticeable increased WB through B UEs during amb and pt states heel strikes caused some pain. Pt denies any significant weakness but ambulation does increase her pain level. She overall demonstrated very steady and safe during gait training with FWW. PT-Balance Assessment Sitting Balance and Reactions Static Sitting Balance Ability Normal Dynamic Sitting Balance Ability Normal Standing Balance and Reactions Static Standing Balance Ability Good Dynamic Standing Balance Ability Good Device Used FWW M5 PT-IP Objective Assessments Start: 12/30/18 08:24 Freq: NEEDED Status: Active Protocol: Document 12/30/18 08:40 (Rec: 12/30/18 10:58 [email or web address]) Orientation Orientation/Cognition Level of Alertness Alert Orientation Name Age Birthday Month Date Year Day of Week Place Situation Language Function Ability No Deficits Noted Safety Awareness Understands Safety Issues Memory Description No Deficits Noted Gross Range of Motion Upper Extremity ROM Assessment Within Functional Limits Lower Extremity ROM Assessment Within Functional Limits Strength Upper Extremity Strength Assessment Within Functional Limits Lower Extremity Strength Assessment Within Functional Limits Comments Strength Comments did not notice strength difference on B LEs. Coordination Assessment Gross Coordination Gross Coordination WNL Sensation Assessment Sensation Gross Sensation WNL Muscle Tone Muscle Tone WNL Yes M6 PT-IP Treatment Start: 12/30/18 08:24 Freq: NEEDED Status: Active Protocol: Document 12/30/18 08:40 HH (Rec: 12/30/18 10:58 [email or web address]) Physical Therapy Treatment Education Education Provided Precautions Weight Bearing Status Post-Op Packet Safety M7 PT-IP Assessment and Plan Start: 12/30/18 08:24 Freq: NEEDED Status: Active Protocol: Document 12/30/18 08:40 HH (Rec: 12/30/18 10:58 [email or web address]) PT Summary Assessment and Plan Potential Rehabilitation Potential Excellent Status of Condition at Evaluation Stable Summary Impairments Pain ROM Strength Balance Bed Mobility Transfers Gait Activity Tolerance Assessment Summary Pt is low complexity who is POD #2 L3-L4 TLIF. Pt's dtr Pily at bedside upon assessment. Pt was able to recall all 3 post op precautions and used log roll method for bed mobility with nursing staff. She overall needed min A for transfers and cues for hand placements and slow descent during sit <> stand. She did c/o increase in pain during gait training but overall very safe and steady. Did not notice any strength difference between B LEs as well. Pt is expected to be d/c home with dtr's assistance once she is medically stable. Goals Bed Mobility Goal Independent Transfer Goal Independent Front Wheeled Walker Gait Goal Independent Front Wheel Walker Gait Distance 200 Days to Meet Goals 3 Frequency of Treatment Frequency Of Treatment Twice a Day Treatment Plan Physical Therapy Treatment Plan Bed Mobility Training Transfer Training Gait Training Therapeutic Exercise Balance Retraining Post Op Education Discharge Planning Hot or Cold Pack Neuromuscular Re-ed Other Recommendations and Next Treatment log roll Focus review precautions gait training as iesha Recommendations To Nursing Amount of Assist Needed 1 Person Assist Discharge Recommendations PT Discharge Recommendations Home with Assistance
--- NOTE | 2018-12-30 11:14 | OT.IP.TRT ---
Current Diagnoses Spinal stenosis, lumbar region without neurogenic claudication (12/29/18) Other mechanical complication of other internal orthopedic devices, implants and grafts, initial encounter (12/29/18) Arthrodesis status (12/29/18) Surgery Performed Operation Date: 12/29/18 12:15 Actual Procedures p L3-4 TLIF; L4-5,L5-S1 HWR; L3-4,L4-5,L5-S1 PSF w/Instru. - Dorothy Claudio MD Occupational Therapy Treatment Note M3 OT- IP Subjective and Pain Start: 12/30/18 11:11 Freq: Status: Active Protocol: Document 12/30/18 11:11 [facility] (Rec: 12/30/18 11:14 [facility] [email or web address]) OT- Subjective Occupational Therapy Visit Type Type Administrative Note Notes Pt here for L4-S1 due to hardware loosening and prior back sx on 09/08/18. Pt already has all AED and was able to get a tub bench. Pt's daughter are independent to assist pt for all needs. Therefore discharge OT eval orders.
--- NOTE | 2018-12-30 14:30 | PT.IPTN ---
Current Diagnoses Spinal stenosis, lumbar region without neurogenic claudication (12/29/18) Other mechanical complication of other internal orthopedic devices, implants and grafts, initial encounter (12/29/18) Arthrodesis status (12/29/18) Surgery Performed Operation Date: 12/29/18 12:15 Actual Procedures p L3-4 TLIF; L4-5,L5-S1 HWR; L3-4,L4-5,L5-S1 PSF w/Instru. - Dorothy Claudio MD Physical Therapy Treatment Note M2 PT-IP Current Condition Start: 12/30/18 08:24 Freq: NEEDED Status: Active Protocol: Document 12/30/18 08:40 HH (Rec: 12/30/18 10:58 [email or web address]) Physical Therapy Current Condition Current Condition Evaluation Date 12/30/18 Treatment Diagnosis L3-L4 TLIF, difficulty in walking Onset Date 12/29/18 Precautions Lumbar Precautions Log Roll No Twisting Limit Bending Lifting Restriction of 10 lbs Gait Belt above Incisional Area Weight Bearing Status Weight Bearing Status Weight Bear as Tolerated M3 PT-IP Subjective Start: 12/30/18 08:24 Freq: NEEDED Status: Active Protocol: Document 12/30/18 14:30 GGD (Rec: 12/30/18 14:49 GGD [id number]) Subjective Physical Therapy Visit Type Type Treatment Note Visit Start Time 14:00 Visit Stop Time 14:30 Total Visit Minutes 30 Number of SURGICAL ASST Visits 1 Physical Therapy Visit Comments Patient Comments Pt states she feeling better. Therapy Pain Assessment Pain When Pain Assessed During Mobility Pain Present Pain Present Pain Reported Location Back Intensity 5 Scale Used Numeric (1 - 10) M4 PT-IP Mobility and Gait Start: 12/30/18 08:24 Freq: NEEDED Status: Active Protocol: Document 12/30/18 14:30 GGD (Rec: 12/30/18 14:49 GGD [id number]) PT-Bed Mobility Assessment Rolling Type of Rolling Log Rolling Roll to Left Level of Assist Standby Assistance Sit to Supine Sit to Supine Contact Guard Assistance Bedrails Scooting Scooting to Edge of Bed Standby Assistance PT-Transfer Assessment Sit to and From Stand Sit to and from Stand Contact Guard Assistance Use of Upper Extremities Equipment Transfer Assistive Device Gait Belt Front Wheeled Walker Orthotic/Prosthetic Devices or Brace: No Transfers Transfer Destination Bed Transfer Ability Level of Assist Minimal Assistance Use of Upper Extremities Gait Assessment Gait Gait Assistance Required: Contact Guard Assist Distance (Feet) 220 Able to Maintain Weight Bearing Status Yes During Gait Assistive Devices Assistive Device Gait Belt Front Wheeled Walker Orthotic/Prosthetic Devices or Brace: No Gait Deviations General Gait Pattern Antalgic Decreased Stride Length Decreased Feet Clearance Step-to Gait Factors Limiting Gait Function Factors Limiting Gait Function Decreased Activity Tolerance Decreased Strength Limited Range of Motion Pain Poor Balance Poor Safety Awareness M5 PT-IP Objective Assessments Start: 12/30/18 08:24 Freq: NEEDED Status: Active Protocol: Document 12/30/18 08:40 HH (Rec: 12/30/18 10:58 HH [email or web address]) Orientation Orientation/Cognition Level of Alertness Alert Orientation Name Age Birthday Month Date Year Day of Week Place Situation Language Function Ability No Deficits Noted Safety Awareness Understands Safety Issues Memory Description No Deficits Noted Gross Range of Motion Upper Extremity ROM Assessment Within Functional Limits Lower Extremity ROM Assessment Within Functional Limits Strength Upper Extremity Strength Assessment Within Functional Limits Lower Extremity Strength Assessment Within Functional Limits Comments Strength Comments did not notice strength difference on B LEs. Coordination Assessment Gross Coordination Gross Coordination WNL Sensation Assessment Sensation Gross Sensation WNL Muscle Tone Muscle Tone WNL Yes M6 PT-IP Treatment Start: 12/30/18 08:24 Freq: NEEDED Status: Active Protocol: Document 12/30/18 14:30 GGD (Rec: 12/30/18 14:49 GGD [email or web address]) Physical Therapy Treatment Education Education Provided Precautions M7 PT-IP Assessment and Plan Start: 12/30/18 08:24 Freq: NEEDED Status: Active Protocol: Document 12/30/18 14:30 GGD (Rec: 12/30/18 14:49 GGD [id number]) PT Summary Assessment and Plan Summary Assessment Summary Pt improving with mobility. She was CGA for bed mobility. She was able to progress gait distance. She was able recall 3/3 of her back precautions. Frequency of Treatment Frequency Of Treatment Twice a Day Treatment Plan Physical Therapy Treatment Plan Bed Mobility Training Transfer Training Gait Training Therapeutic Exercise Balance Retraining Post Op Education Discharge Planning Hot or Cold Pack Neuromuscular Re-ed Other Recommendations and Next Treatment log roll Focus review precautions gait training as iesha Recommendations To Nursing Amount of Assist Needed 1 Person Assist Discharge Recommendations PT Discharge Recommendations Home with Assistance
[2018-12-30] MEDS: ZOLPIDEM 5 MG TABLET 12.5 MG PO (20:40)
[2018-12-30] MEDS: PRAMIPEXOLE 0.25 MG TABLET 0.5 MG PO (20:42)
[2018-12-30] MEDS: OXYCODONE IR 5 MG TABLET 10 MG PO ×2 (20:43→23:47)
[2018-12-31 05:00] VITALS: BP 120/70; PULSE 87; RESP 18; TEMP 36.6; O2SAT 94
[2018-12-31 07:45] VITALS: BP 116/63; PULSE 89; RESP 16; TEMP 37; O2SAT 93
[2018-12-31 08:51] VITALS: BP 116/63
[2018-12-31] MEDS: AMLODIPINE 5 MG TABLET PO (08:51)
[2018-12-31] MEDS: POTASSIUM CHLORIDE 10 MEQ TAB PO (08:51)
[2018-12-31] MEDS: ACETAMINOPHEN 325 MG TABLET 650 MG PO (08:51)
[2018-12-31] MEDS: hydroCHLOROthiazide 25 MG TABLET PO (08:51)
[2018-12-31] MEDS: VENLAFAXINE ER 75 MG CAP 225 MG PO (08:51)
[2018-12-31] MEDS: DOCUSATE 100 MG CAPSULE PO (08:51)
[2018-12-31] MEDS: LOSARTAN 50 MG TABLET PO (08:51)
[2018-12-31] MEDS: OXYCODONE IR 5 MG TABLET PO (08:52)
[2018-12-31] MEDS: hydrOXYzine pamoate 25 MG CAPSULE PO (08:52)
--- NOTE | 2018-12-31 09:55 | P.DS_ITS ---
History of Present Illness Date Patient Seen: 12/31/18 Time Patient Seen: 09:52 Chief complaint: [id number] Narrative: Patient's pain is mild. Denies fever chills. No nausea vomiting. Patient mobilize with physical therapy yesterday. She has been up with her daughter walking in the halls. Wishes to go home today if safe to do so. Discharge Providers Date of admission: 12/29/18 09:34 Discharge Date: 12/31/18 Primary care physician: Silva Reese MD Consults: 12/28/18 09:35 Consult to Respiratory Therapy Evaluate & Treat Comment: TLIF 12/29/18, LIZZ, does not tolerate CPAP Physician Instructions: Evaluate and treat 12/29/18 17:27 Consult to Occupational Therapy Evaluate & Treat Comment: Physician Instructions: Evaluate and treat Consult to Physical Therapy Evaluate & Treat Comment: Physician Instructions: Evaluate and Treat Discharge provider: Chuck Miller PA-C Summary Discharge Diagnosis: Status post 1. L3-4 posterolateral and posterior interbody fusion 2. L3-4 posterior interbody cage placement 3. L4-5, L5-S1 posterior segmental instrumentation removal 4. L4-5, L5-S1 revision laminectomy with exploration of fusion 5. L3-4, L4-5, L5-S1 posterior segmental instrumentation with pedicle screw placement 6. L4-5, L5-S1 posterolatearl fusion 7. Adams of bone marrow from iliac crest through a separate incision 8. Utilization of microsurgical technique and operating microscope Hospital Course: atient has been having chronic back pain and worsening lumbar radiculopathy. Patient is 4 months post L4-5 L5-S1 fusion with gradual loosening of the L4 pedicle screws and breaching through the endplate. Patient failed multiple conservative management with worsening pain weakness and numbness in her lower extremity. Patient has been having difficulty performing activity of daily living. After discussing risks benefits of treatment options, patient elected proceed with surgery. Surgeon: Dorothy Claudio Talent Acquisition Relationship Manager: Leila Fairbanks Click Yes if Unassisted: No Anesthesia Type: General Operative Notes Closure Type: primary Specimen(s): none sent Prosthetic devices, grafts, tissues, transplants, or devices: Globus revolve screws, Rise cage Applied: catheter Estimated Blood Loss (mL): 350 Blood products transfused: none Patient taken to the operating room for the above-mentioned procedures. Patient back in her room recovering well as in stable condition. Patient progressing as expected and will be discharged home today. Status at Discharge Cognitive/behavioral status at discharge: at baseline, oriented Functional status at discharge: uses cane/walker Overall status at discharge: patient is progressing back to baseline Time Spent with Patient Less than 30 minutes Exam Vital Signs (past 8 hours): - 12/31/18 05:00 12/31/18 07:45 12/31/18 08:51 Temperature 97.8 F 98.6 F Pulse Rate 87 89 Respiratory Rate 18 16 Blood Pressure 120/70 116/63 116/63 Pulse Oximetry 94 93 Oxygen Delivery Method Nasal Cannula Oxygen Flow Rate 0 Narrative Exam Narrative: Pleasant 73-year-old female resting comfortably in bed in no apparent distress. Sensation grossly intact to light touch bilateral lower extremities. Motor functions intact bilateral lower extremities. Both legs are warm and dry. Dressing is clean, dry and intact. Objective Labs Result Diagrams: 12/30/18 05:26 12/29/18 11:37 Discharge Plan Discharge Plan Patient Disposition: Home Discharge comment: Discharge home today. Discharge Med Rec/Prescriptions Prescriptions: New hydroxyzine pamoate 25 mg Capsule 25 mg PO Q4-6H PRN (Reason: muscle spasm) Qty: 30 RF: 0 oxycodone 5 mg Tablet 5 mg PO Q4-6H PRN (Reason: pain) Qty: 40 RF: 0 Continued losartan 50 mg Tablet 50 mg PO BID RF: 0 potassium chloride 10 mEq Tablet Extended Release 10 meq PO DAILY RF: 0 amlodipine 5 mg Tablet 5 mg PO DAILY RF: 0 aspirin 81 mg Tablet,Delayed Release (Dr/Ec) 81 mg PO DAILY RF: 0 pramipexole 0.5 mg Tablet 0.5 mg PO BEDTIME RF: 0 ranitidine HCl 150 mg Tablet 150 mg PO BID RF: 0 hydrochlorothiazide 25 mg Tablet 25 mg PO DAILY RF: 0 zolpidem 12.5 mg Tablet,Ext Release Multiphase 12.5 mg PO BEDTIME RF: 0 venlafaxine 225 mg Tablet Extended Release 24hr 225 mg PO QAM RF: 0 acetaminophen 325 mg Tablet 650 mg PO Q6HR PRN (Reason: Pain, Mild (1-3)) Qty: 60 RF: 0 docusate sodium 100 mg Capsule 100 mg PO BID Qty: 60 RF: 0 Discontinued oxycodone 5 mg capsule 5 mg PO Q4-6H PRN (Reason: pain) Qty: 60 RF: 0 Follow up/Referrals: Dorothy Claudio MD [Physician] - (Two weeks) Silva Reese MD [Primary Care Provider] - Provider Discharge Instructions Diet: Diet as Tolerated and Regular Activity: No bending, lifting, or twisting. Use walker for support. Cold/Heat Therapy: Apply ice packs as needed Skin/Wound/Dressing Care Report to your healthcare provider any signs of infection, such as:: chills, fever, night sweats, unusual drainage and unusual redness Dressing: Leave dressing in place, will be removed at post operative visit. Call the office if excessive staining of the dressing. Visit Report/Discharge Packet Instructions: DI for Transforaminal Lumbar Interbody Fusion Discharge Data Primary Care Provider: Silva Reese Attending Provider: Dorothy Claudio Admit Date/Time: 12/29/18 09:34
--- NOTE | 2018-12-31 10:25 | PT.IPTN ---
Current Diagnoses Spinal stenosis, lumbar region without neurogenic claudication (12/29/18) Other mechanical complication of other internal orthopedic devices, implants and grafts, initial encounter (12/29/18) Arthrodesis status (12/29/18) Surgery Performed Operation Date: 12/29/18 12:15 Actual Procedures p L3-4 TLIF; L4-5,L5-S1 HWR; L3-4,L4-5,L5-S1 PSF w/Instru. - Dorothy Claudio MD Physical Therapy Treatment Note M2 PT-IP Current Condition Start: 12/30/18 08:24 Freq: NEEDED Status: Discharge Protocol: Document 12/30/18 08:40 HH (Rec: 12/30/18 10:58 [id number]) Physical Therapy Current Condition Current Condition Evaluation Date 12/30/18 Treatment Diagnosis L3-L4 TLIF, difficulty in walking Onset Date 12/29/18 Precautions Lumbar Precautions Log Roll No Twisting Limit Bending Lifting Restriction of 10 lbs Gait Belt above Incisional Area Weight Bearing Status Weight Bearing Status Weight Bear as Tolerated M3 PT-IP Subjective Start: 12/30/18 08:24 Freq: NEEDED Status: Discharge Protocol: Document 12/31/18 10:25 GGD (Rec: 12/31/18 12:11 GGD [id number]) Subjective Physical Therapy Visit Type Type Treatment Note Visit Start Time 10:10 Visit Stop Time 10:25 Total Visit Minutes 15 Number of CUSTOMER OPERATIONS SPECIALIST Visits 2 Physical Therapy Visit Comments Patient Comments Pt states she want's to go home. Therapy Pain Assessment Pain When Pain Assessed During Mobility Pain Present Pain Present Pain Reported Location Back Intensity 4 Scale Used Numeric (1 - 10) M4 PT-IP Mobility and Gait Start: 12/30/18 08:24 Freq: NEEDED Status: Discharge Protocol: Document 12/31/18 10:25 GGD (Rec: 12/31/18 12:11 GGD [id number]) PT-Transfer Assessment Sit to and From Stand Sit to and from Stand Contact Guard Assistance Use of Upper Extremities Equipment Transfer Assistive Device Gait Belt Front Wheeled Walker Orthotic/Prosthetic Devices or Brace: No Transfers Transfer Destination Bed Transfer Ability Level of Assist Minimal Assistance Use of Upper Extremities Gait Assessment Gait Gait Assistance Required: Contact Guard Assist Distance (Feet) 220 Able to Maintain Weight Bearing Status Yes During Gait Assistive Devices Assistive Device Gait Belt Front Wheeled Walker Orthotic/Prosthetic Devices or Brace: No Gait Deviations General Gait Pattern Antalgic Decreased Stride Length Decreased Feet Clearance Step-to Gait Factors Limiting Gait Function Factors Limiting Gait Function Decreased Activity Tolerance Decreased Strength Limited Range of Motion Pain Poor Balance Poor Safety Awareness M5 PT-IP Objective Assessments Start: 12/30/18 08:24 Freq: NEEDED Status: Discharge Protocol: Document 12/30/18 08:40 HH (Rec: 12/30/18 10:58 HH [id number]) Orientation Orientation/Cognition Level of Alertness Alert Orientation Name Age Birthday Month Date Year Day of Week Place Situation Language Function Ability No Deficits Noted Safety Awareness Understands Safety Issues Memory Description No Deficits Noted Gross Range of Motion Upper Extremity ROM Assessment Within Functional Limits Lower Extremity ROM Assessment Within Functional Limits Strength Upper Extremity Strength Assessment Within Functional Limits Lower Extremity Strength Assessment Within Functional Limits Comments Strength Comments did not notice strength difference on B LEs. Coordination Assessment Gross Coordination Gross Coordination WNL Sensation Assessment Sensation Gross Sensation WNL Muscle Tone Muscle Tone WNL Yes M6 PT-IP Treatment Start: 12/30/18 08:24 Freq: NEEDED Status: Discharge Protocol: Document 12/30/18 14:30 GGD (Rec: 12/30/18 14:49 GGD [id number]) Physical Therapy Treatment Education Education Provided Precautions M7 PT-IP Assessment and Plan Start: 12/30/18 08:24 Freq: NEEDED Status: Discharge Protocol: Document 12/31/18 10:25 GGD (Rec: 12/31/18 12:11 GGD [id number]) PT Summary Assessment and Plan Summary Assessment Summary Pt improving with mobility. She was safe and stable with gait wiht FWW. Pt safe for home d/c when medically stable . Frequency of Treatment Frequency Of Treatment Twice a Day Treatment Plan Physical Therapy Treatment Plan Bed Mobility Training Transfer Training Gait Training Therapeutic Exercise Balance Retraining Post Op Education Discharge Planning Hot or Cold Pack Neuromuscular Re-ed Recommendations To Nursing Amount of Assist Needed 1 Person Assist Discharge Recommendations PT Discharge Recommendations Home with Assistance
--- NOTE | 2018-12-31 10:46 | PC.NURSE ---
Pt dressed and ready for discharge home with Daughter. Pt IV removed and Dressing Changed. Went over d/c instructions with Pt and Daughter - discussed d/c meds, time of last dose, reviewed stroke education and signs and symptoms of infection. Encouraged Pt to drink plenty of fluids to prevent constipation or dehydration. Pt and Daughter deny further questions and Pt was taken out via w/c by [employer] [facility] to POV with Daughter and all belongings.
--- NOTE | 2018-12-31 13:10 | CM.IDA ---
Initial DCP Assessment Note: Pt is a 73 yo female, resident of [facility], now POD#2 from spinal surgery w/ Dr Claudio . PCP: Megan Reese Payer: [facility]/[employer] Reviewed chart, pt discussed in multidisciplinary rounds this morning. Therapy has cleared pt for return home w/family to assist and pt has planned for home, DC order from Ortho PA has already been initiated this morning. No needs expected from DC planning team although will remain available in case this changes today. FRIDA Enriquez
== END 2018-12-31 10:44 | disposition home or self-care (01) | DRG 454 ==
PROVIDERS: Anesthesiology; Admitting Provider Orthopaedic Surgery Orthopaedic Surgery of the Spine; Family Provider Internal Medicine Geriatric Medicine; PCP Internal Medicine Geriatric Medicine; Visit Provider Orthopaedic Surgery Orthopaedic Surgery of the Spine
PROC: 0SG00AJ Fusion of Lumbar Vertebral Joint with Interbody Fusion Device, Posterior Approach, Anterior Column, Open Approach (ICD-10-PCS; principal; 2018-12-29 12:15)
DX: T84.498A Other mechanical complication of other internal orthopedic devices, implants and grafts, initial encounter (principal); Z68.41 Body mass index [BMI] 40.0-44.9, adult; M96.0 Pseudarthrosis after fusion or arthrodesis; M43.16 Spondylolisthesis, lumbar region; M47.26 Other spondylosis with radiculopathy, lumbar region; E66.01 Morbid (severe) obesity due to excess calories; M48.061 Spinal stenosis, lumbar region without neurogenic claudication
CPT/HCPCS: 36415; 72100; 76000; 84132; 84295; 85014; 85018; 97116; 97161; 97530; C1776; C9290; J0330; J0690; J1100; J1170; J2405; J2704; J3010; J3410

== ENCOUNTER 2022-11-14 12:54 | Observation (INO) | payer MEDICARE, OTHER, SELFPAY ==
[2018-12-29 18:00] VITALS: BMI 40.0
[2022-10-21 11:49] VITALS: BMI 35.7
[2022-11-13] VITALS (11 sets, daily range): BP systolic 103–148; BP diastolic 42–68; PULSE 65–83; RESP 12–18; TEMP 35.6–36.6; O2SAT 93–100; BMI 35.7
[2022-11-13] MEDS: VANCOMYCIN 1,000 MG/200 ML PIGGYBACK 200 MG IV (10:22)
[2022-11-13] MEDS: LACTATED RINGERS 1,000 ML 42 ML IV ×2 (10:22→13:05)
[2022-11-13] MEDS: ACETAMINOPHEN 325 MG TABLET 975 MG PO (10:23)
[2022-11-13] MEDS: CELECOXIB 200 MG CAPSULE PO (10:23)
[2022-11-13 10:33] LABS: COVID19 -Nasal RAPID Negative (Negative)
[2022-11-13] MEDS: MIDAZOLAM 2 MG/2 ML VIAL IV ×2 (10:39→10:56)
--- NOTE | 2022-11-13 11:02 | SUR.PREOP ---
Patient presents with restless legs and anxiety; requesting medication to assist with both; notified Dr Louie Mosley, anesthesiologist; Dr Mosley to bedside to assess patient. Orders received for Versed 1 mg, may repeat 1 mg PRN and continuous pulse oximetry. Placed patient on oxygen at 2 liters via nasal cannula and continuous pulse oximetry. Daughter at bedside.
--- NOTE | 2022-11-13 11:48 | PM.OP.1 ---
Operative Date/Time/Diagnoses Date of procedure: 11/13/22 Time of procedure: 12:15 Pre-op diagnosis: Left knee severe OA Post-op diagnosis: same Procedure & Clinicians Procedure: left total knee arthroplasty Same procedure as scheduled: Yes Indications: The patient has had progressively worsening left knee pain with radiographic changes consistent with arthritis. Non-operative management has failed and the patient has requested total knee replacement. The risks, benefits and alternatives to surgery were discussed with the patient prior to proceeding. Risks discussed included, but were not limited to, failure to relieve pain, stiffness, infection, nerve damage, deep venous thrombosis, pulmonary embolism, stroke, coma, heart attack, permanent paralysis and , as well as the potential need for eventual revision of the prosthetic. Surgeon: Inna [employer] Specialist: Santa Kelly Anesthesia Type: Spinal Operative Notes Findings: Severe left knee OA, adequate stability Closure Type: primary Specimen(s): none sent Prosthetic devices, grafts, tissues, transplants, or devices: Heart [employer]hew [employer] BCS 2 size 5 femur, size 4 tibia, +9 poly, 35 x 7.5 mm round patella Estimated Blood Loss (mL): 250 Blood products transfused: none Tourniquet time (min): 59 Procedure in detail: The patient was seen in the pre-operative area, where the patient identified the left knee as the operative site and this was marked with my initials. The patient received pre-operative antibiotics, and was taken to the operating room and placed on the operative table in the supine position. After satisfactory anesthesia, a time study clerk out was performed. The left leg was encircled with a tourniquet about the proximal thigh, and the leg was prepared from the toes to the tourniquet with ChloroPrep in the usual fashion and draped through sterile drapes. The leg was elevated and exsanguinated with Eschmark bandage and the tourniquet inflated to [250] mmHg pressure. A PA was used throughout the procedure for critical retraction of soft tissues and adequate positioning of the knee to allow successful implantation of the components. The knee was approached through an approximately 18 cm incision centered over the patella and carried into the knee through a medial parapatellar arthrotomy. A portion of the medial and lateral meniscus was resected. Soft tissue was carefully mobilized around the patella the patella was measured with a caliper. Bone was resected from the patella and the patellar height was reconstituted with up an appropriate sized patellar component. A cover was then placed on the patella. A small amount of additional medial and lateral meniscus was resected. The distal femur was cut at 5?. A [+2] cut was used. It looked like an appropriate distal femoral cut and the cut was made without difficulty. An extramedullary guide was used for the tibial cut. 10 mm was resected off the least affected side.The tibia was prepared. The rotation was assessed. The patient was placed in extension residual medial and lateral meniscus as well as any residual bone was carefully resected. [No] additional tibia was resected. Hemostasis was achieved especially posteriorly. Additional local was injected into the posterior capsule. The extension gap was assessed and additional releases for gap balancing were performed as necessary. It was checked with the gap certified professional coder. The femoral component was trial was placed and the notch was finished. The rotation was assessed and the appropriate size femoral guide was placed on the distal femur and finishing cuts were made. There was no evidence of notching. The anterior, posterior and chamfer cuts were then made. The posterior osteophytes and soft tissues were then removed. The posterior capsule was injected with part of a mixture of 60 ml 0.25% Marcaine mixed with 20 ml Exparel for post operative pain control. The remainder of this mixture was injected into the capsule and subcutaneous tissues during cement curing. The tibial and femoral components were then placed and the knee placed through a range of motion. Range of motion was [0-130], with good stability throughout the range. The trials were then removed, and the tibia was finished. The bone was prepared with pulsatile lavage, and dried with a sponge. Cement was applied and the final prosthetics placed. Excess cement was removed during and after cement curing. A brief Betadine soak was performed. After confirming there was no extruded cement posteriorly, the final tibial insert was placed. The knee was copiously irrigated and the tourniquet deflated. Hemostasis was obtained with the bovie cautery. The capsule was closed with interrupted nonabsorbable suture. The subcutaneous layer was closed with barbed sutures, and the skin with a running 3-0 V-Lock suture and skin nai. An Aquacel Ag dressing was applied and the patient was taken to recovery having tolerated the procedure well. Complications: none Post-operative Condition: stable Disposition: Acute Care Plan for aftercare: The patient will be maintained on a standard total knee replacement protocol with weight bearing as tolerated. The patient will receive aspirin and sequential compression devices for DVT prophylaxis. The patient will be discharged home when safe for the home environment. She has multiple medical problems. She has some chronic congestive heart failure, asthma and morbid obesity. She was cleared preoperatively by her risk control representative but felt to be intermediate risk and did require monitoring. I have recommended admission as an inpatient. She has supportive family but there is some conflict.
--- NOTE | 2022-11-13 11:49 | PM.PREOP ---
Pre-operative Note COVID-19 COVID-19 status: Negative Result date/Date tested (Pos, Neg/Pending): 11/13/22 Interval Note History & Physical reviewed/Exam performed by Physician: Yes Changes to H&P: No
[2022-11-13] MEDS: CEFAZOLIN 2 GM/100 ML PREMIX 100 ML IV ×2 (12:10→20:40)
[2022-11-13] MEDS: TRANEXAMIC ACID 1,000 MG VIAL 1000 MG INJ ×2 (12:30→13:53)
--- NOTE | 2022-11-13 13:01 | SUR.OPER ---
Supine on padded OR bed. Pillow under head, arms secured on padded armboards <90 degree abduction. Safety belt across torso. Non-operative leg secured with tape over blanket over lower leg. Operative leg secured in DeMayo/Milton/Nathe positioner. Foam padded brace at thigh of operative leg.
[2022-11-13] MEDS: BUPIVACAINE 0.25% (PF) 60 ML, EPINEPHrine 0.3 MG INJ (13:08)
[2022-11-13] MEDS: BUPIVACAINE LIPOSOME 266 MG/20 ML VIAL INJ (13:45)
--- NOTE | 2022-11-13 14:40 | DI.RAD.S_ITS ---
PROCEDURE: XR KNEE LT 1TO2V INDICATIONS: post op total knee arthroplasty TECHNIQUE: 2 view(s) of the knee acquired. COMPARISON: [facility], , KNEE 1-2 VIEWS RIGHT, 11/19/2014, 11:14. FINDINGS: Bones: Patient is status post knee joint arthroplasty. Hardware components are in expected positions. Visualized bony structures are intact. Soft tissues: Overlying postoperative changes are noted. IMPRESSION: Normal alignment after left total knee arthroplasty. Dictated by: Edward Mcbride M.D. on 11/13/2022 at 15:08 Approved by: Edward Mcbride M.D. on 11/13/2022 at 15:08
--- NOTE | 2022-11-13 15:43 | PC.NURSE ---
Assess- Patient had a left total knee. Dressing to knee is aquacel with dayo wrap that is cdi. She has feeling to her feet and leg. PPx2 and strong. Patients daughter is at bedside. She will be on ivf and is resting comfortably.
[2022-11-13] MEDS: ACETAMINOPHEN 325 MG TABLET 650 MG PO ×2 (16:11→22:01)
[2022-11-13] MEDS: IBUPROFEN 400 MG TABLET PO ×3 (16:12→23:32)
[2022-11-13] MEDS: LACTATED RINGERS 1,000 ML 100 ML IV (16:15)
[2022-11-13] MEDS: OXYCODONE IR 10 MG TABLET PO ×3 (17:25→23:33)
[2022-11-13] MEDS: DOCUSATE 100 MG CAPSULE PO (20:41)
[2022-11-13] MEDS: ATORVASTATIN 20 MG TABLET 10 MG PO (20:41)
[2022-11-13] MEDS: carvediloL 3.125 MG TABLET PO (20:41)
[2022-11-13] MEDS: ASPIRIN EC 81 MG TABLET PO (20:41)
[2022-11-13] MEDS: PREGABALIN 50 MG CAPSULE PO (20:41)
[2022-11-13] MEDS: MELATONIN 3 MG TABLET 9 MG PO (20:41)
[2022-11-13] MEDS: PRAMIPEXOLE 0.25 MG TABLET 0.5 MG PO (20:54)
[2022-11-13] MEDS: LOSARTAN 50 MG TABLET PO (22:01)
[2022-11-14] VITALS (8 sets, daily range): BP systolic 120–148; BP diastolic 52–68; PULSE 58–69; RESP 14–18; TEMP 35.9–36.1; O2SAT 92–93
[2022-11-14] MEDS: CEFAZOLIN 2 GM/100 ML PREMIX 100 ML IV (02:46)
[2022-11-14] MEDS: IBUPROFEN 400 MG TABLET PO ×6 (02:46→23:03)
[2022-11-14] MEDS: OXYCODONE IR 10 MG TABLET PO ×2 (02:47→05:48)
[2022-11-14] MEDS: ACETAMINOPHEN 325 MG TABLET 650 MG PO ×4 (05:48→20:45)
[2022-11-14 06:52] LABS: Hematocrit 32.6 % (36-46); Hemoglobin 10.5 g/dL (12.0-16.0)
[2022-11-14] MEDS: LOSARTAN 50 MG TABLET PO ×2 (08:42→20:48)
[2022-11-14] MEDS: carvediloL 3.125 MG TABLET PO ×2 (08:42→20:48)
[2022-11-14] MEDS: ASPIRIN EC 81 MG TABLET PO ×2 (08:42→20:47)
[2022-11-14] MEDS: DOCUSATE 100 MG CAPSULE PO ×2 (08:42→20:47)
[2022-11-14] MEDS: PREGABALIN 50 MG CAPSULE PO ×2 (08:42→20:47)
[2022-11-14] MEDS: TORSEMIDE 10 MG TABLET PO (08:42)
[2022-11-14] MEDS: POTASSIUM CHLORIDE 10 MEQ TAB PO (08:43)
[2022-11-14] MEDS: VENLAFAXINE ER 75 MG CAP 225 MG PO (08:43)
--- NOTE | 2022-11-14 10:24 | P.PN_ITS ---
Subjective Subjective Date Patient Seen: 11/14/22 Time Patient Seen: 10:24 Interval history: Pt sleeping, arouses easily to voice. Has not been OOB or worked w/ PT since surgery. C/o pain in LLE. Her plan is to go home after surgery, but she doesn't have any help at home. Exam Vital Signs (past 8 hours): - 11/14/22 02:56 11/14/22 08:42 11/14/22 08:42 Temperature 96.6 F L Pulse Rate 60 69 69 Respiratory Rate 18 Blood Pressure 143/64 H 146/68 H 148/67 H Pulse Oximetry 93 Oxygen Flow Rate 0 Oxygen Delivery Method Room Air Oxygen Flow Rate 0 Narrative Exam Narrative: 4/5 hip flexors, quadriceps, hamstrings; 5/5 DF, PF, EHL on left. Sensation to light touch intact throughout LLE. Aquacel dressing CDI. Objective Labs 11/14/22 06:25 Labs: Laboratory Results - last 24 hr 11/13/22 11/14/22 10:00 06:25 Hgb 10.5 L Hct 32.6 L SARS-CoV-2 (PCR) Negative [facility] Medical History (Updated 10/21/22 @ 14:43 by Karon Clay RN) Aortic stenosis, mild Arthritis Breast cancer, right (~1995) Bronchospasm Chronic bronchitis Chronic diastolic heart failure CKD (chronic kidney disease) COPD (chronic obstructive pulmonary disease) Depression Diabetes Eczema GERD (gastroesophageal reflux disease) Glaucoma Hearing impaired History of COVID-19 (06/2022) History of Mohs micrographic surgery for skin cancer (01/14/16) HTN (hypertension) Hyperlipidemia IBS (irritable bowel syndrome) Mitral stenosis Nephrolithiasis Pneumonia RLS (restless legs syndrome) Sciatica Sepsis (03/2020) Sleep apnea Surgical History (Updated 11/14/22 @ 10:27 by Maye Chun PA-C) History of arthroplasty of right knee (~2014) History of esophagogastroduodenoscopy (EGD) (05/12/22) History of lumbar fusion (09/08/18) History of lumbar fusion (12/29/18) History of nasal surgery Hx of bladder repair surgery Hx of cardiac cath (03/2022) Hx of cholecystectomy Hx of colonoscopy (05/12/22) Hx of thumb surgery Hx of tonsillectomy S/P repair of paraesophageal hernia (06/25/22) Status post cataract extraction of both eyes with insertion of intraocular lens Social History household members: none Smoking Status: Former smoker alcohol intake: current Assessment & Plan Post-op Assessment and plan (1) Total knee replacement status: Assessment and Plan narrative: Continue multimodal pain control, ASA 81 mg BID for VTE prophylaxis. PT to eval, pt will likely need vs SNF at discharge due to lack of support at home. Anticipate discharge in next 1-2 days. Postoperative Procedures: Procedures Operation Date: 11/13/22 12:00 Actual Procedure Side Surgeon p Total Knee Arthroplasty Left Inna Heart MD Postoperative day: 1 Quality VTE Deep Vein Thrombosis/Pulmonary Embolism Present on Admission: No
--- NOTE | 2022-11-14 12:19 | PT.IIE ---
Current Diagnoses Unilateral primary osteoarthritis, left knee (11/13/22) Presence of unspecified artificial knee joint (11/13/22) Surgery Performed Operation Date: 11/13/22 12:00 Actual Procedures p Total Knee Arthroplasty(Left) - Inna Heart MD Surgical History (Last Updated 10/21/22 @ 14:43 by Karon Clay, RN) History of arthroplasty of right knee (~2014) History of esophagogastroduodenoscopy (EGD) (05/12/22) History of lumbar fusion (09/08/18) History of lumbar fusion (12/29/18) History of nasal surgery Hx of bladder repair surgery Hx of cardiac cath (03/2022) Hx of cholecystectomy Hx of colonoscopy (05/12/22) Hx of thumb surgery Hx of tonsillectomy S/P repair of paraesophageal hernia (06/25/22) Status post cataract extraction of both eyes with insertion of intraocular lens Medical History (Last Updated 10/21/22 @ 14:43 by Karon Clay RN) Aortic stenosis, mild Arthritis Breast cancer, right (~1995) Bronchospasm Chronic bronchitis Chronic diastolic heart failure CKD (chronic kidney disease) COPD (chronic obstructive pulmonary disease) Depression Diabetes Eczema GERD (gastroesophageal reflux disease) Glaucoma Hearing impaired History of COVID-19 (06/2022) History of Mohs micrographic surgery for skin cancer (01/14/16) HTN (hypertension) Hyperlipidemia IBS (irritable bowel syndrome) Mitral stenosis Nephrolithiasis Pneumonia RLS (restless legs syndrome) Sciatica Sepsis (03/2020) Sleep apnea Physical Therapy Inpatient Evaluation/Re-Eval M1 PT/OT-IP Prior Functional Status Start: 11/14/22 12:04 Freq: NEEDED Status: Active Protocol: Document 11/14/22 12:04 ES (Rec: 11/14/22 12:19 ES [id number]) Medical Review Prior Functional Status Medical History Reviewed Yes Diet/Fluid Consistency Regular Communication WFL Mobility and Gait Indep with 4WW Activities of Daily Living and IADL's Indep Social History Household Members none Living Arrangements Apartment/Condo Number of Floors (Floors) One Floor Number of Stairs To Enter/Railing? 0 Home Environment Standard Height Toilet,Tub/ Shower Home Equipment Front Wheel Walker,Four Wheel Walker,Straight Cane,Raised Toilet Seat Without Armrests, Tub Transfer Bench,Bed Rails, Grab Bars Near Toilet,Grab Bars In Shower Additional Social History Comment Has a friend in her apartment complex who said they can stay with her and/or check in on her as needed. Family unable to provide much assistance on a regular basis. M2 PT-IP Current Condition Start: 11/14/22 12:04 Freq: NEEDED Status: Active Protocol: Document 11/14/22 12:04 ES (Rec: 11/14/22 12:19 ES [id number]) Physical Therapy Current Condition Current Condition Evaluation Date 11/14/22 Treatment Diagnosis s/p L TKA Onset Date 11/13/22 M3 PT-IP Subjective Start: 11/14/22 12:04 Freq: NEEDED Status: Active Protocol: Document 11/14/22 12:04 ES (Rec: 11/14/22 12:19 ES [id number]) Subjective Physical Therapy Visit Type Type Initial Evaluation Visit Start Time 11:33 Visit Stop Time 12:02 Total Visit Minutes 29 Physical Therapy Visit Comments Patient Comments Patient reported she had a rough night of sleep last night and feeling tired today. Daughter present during eval. Patient stated her pain has been doing fine. Agreeable to get up with PT. Therapy Pain Assessment Pain When Pain Assessed At Rest Pain Present Pain Present Denied Pain M4 PT-IP Mobility and Gait Start: 11/14/22 12:04 Freq: NEEDED Status: Active Protocol: Document 11/14/22 12:04 ES (Rec: 11/14/22 12:19 ES [id number]) PT-Bed Mobility Assessment Supine to Sit Supine to Sit Standby Assistance,Bedrails Scooting Scooting to Edge of Bed Independent PT-Transfer Assessment Sit to and From Stand Sit to and from Stand Standby Assistance,Use of Upper Extremities Equipment Transfer Assistive Device Gait Belt,Front Wheeled Walker Orthotic/Prosthetic Devices or Brace: No Transfers Transfer Destination Chair,Toilet Transfer Technique Stand Step Pivot Transfer Ability Level of Assist Standby Assistance,Use of Upper Extremities Comments Mobility Comments Cued for hand placement for safety with FWW. Good recall of instructions for operative foot forward during sit to/ from stand. Gait Assessment Gait Gait Assistance Required: Contact Guard Assist Distance (Feet) 15 Able to Maintain Weight Bearing Status Yes During Gait Assistive Devices Assistive Device Gait Belt,Front Wheeled Walker Orthotic/Prosthetic Devices or Brace: No Gait Deviations General Gait Pattern Antalgic,Decreased Stride Length,Decreased Feet Clearance Factors Limiting Gait Function Factors Limiting Gait Function Decreased Strength,Limited Range of Motion,Pain Comments Gait Comments Ambulated initially with step- to gait with minimal L knee flexion, improving with cues. Required extra time due to decreased caden and velocity . PT-Balance Assessment Sitting Balance and Reactions Static Sitting Balance Ability Good Dynamic Sitting Balance Ability Good Standing Balance and Reactions Static Standing Balance Ability Good Dynamic Standing Balance Ability Fair Device Used FWW M5 PT-IP Objective Assessments Start: 11/14/22 12:04 Freq: NEEDED Status: Active Protocol: Document 11/14/22 12:04 ES (Rec: 11/14/22 12:19 ES [id number]) Orientation Orientation/Cognition Level of Alertness Lethargic Orientation Name,Age,Birthday,Month,Date, Year,Day of Week,Place, Situation Language Function Ability No Deficits Noted Safety Awareness Understands Safety Issues Memory Description No Deficits Noted Gross Range of Motion Upper Extremity ROM Assessment Within Functional Limits Lower Extremity ROM Assessment Left Impaired Impairments Decreased L knee ROM 2/2 surgery Strength Upper Extremity Strength Assessment Within Functional Limits Lower Extremity Strength Assessment Left Impaired Hip WFL Knee Grossly 3+/5 Ankle WFL Coordination Assessment Gross Coordination Gross Coordination WNL Sensation Assessment Sensation Gross Sensation WNL M6 PT-IP Treatment Start: 11/14/22 12:04 Freq: NEEDED Status: Active Protocol: Document 11/14/22 12:04 ES (Rec: 11/14/22 12:19 ES [id number]) Physical Therapy Treatment Exercises Exercises Ankle Pumps,Seated Knee Flexion/Extension Knee ROM Measurement 0-80 degrees L knee flexion Education Education Provided Weight Bearing Status,Safety M7 PT-IP Assessment and Plan Start: 11/14/22 12:04 Freq: NEEDED Status: Active Protocol: Document 11/14/22 12:04 ES (Rec: 11/14/22 12:19 ES [id number]) PT Summary Assessment and Plan Potential Rehabilitation Potential Good Status of Condition at Evaluation Stable Summary Impairments Pain,ROM,Strength,Transfers, Gait Assessment Summary Patient is a 77 year old female s/p L TKA who presents with impaired functional mobility due to the above problems. Patient was drowsy throughout visit though was able to partipate in eval, ambulate to bathroom, [facility] Pain increased with ambulation but was well-controlled throughout visit. She has limited social resources but is well set up with adaptive equipment at home. She will benefit from further skilled PT to instruct in HEP and progress gait to be able to d/c home safely; recommend HHPT to follow up as it will be difficult for her to leave the home and she will be unable to drive. Goals Transfer Goal Independent,Front Wheeled Walker Gait Goal Independent,Front Wheel Walker Gait Distance 50 Other Goals Patient will be indep with HEP . Patient will demonstrate 0-90 degrees L knee flexion ROM. Days to Meet Goals 3 Frequency of Treatment Frequency Of Treatment Twice a Day Treatment Plan Physical Therapy Treatment Plan Transfer Training,Gait Training,Therapeutic Exercise, Post Op Education,Discharge Planning,Hot or Cold Pack, Manual Therapy Other Recommendations and Next Treatment Instruct in TKA HEP. Increase Focus ambulation distance. Weight Bearing Status Weight Bearing Status Weight Bear as Tolerated Recommendations To Nursing Amount of Assist Needed Standby Assistance Discharge Recommendations PT Discharge Recommendations Home with Assistance,Home Health Transportation Needs at Discharge Private Vehicle
[2022-11-14] MEDS: OXYCODONE IR 5 MG TABLET PO (13:21)
--- NOTE | 2022-11-14 14:31 | PT.IPTN ---
Current Diagnoses Unilateral primary osteoarthritis, left knee (11/13/22) Presence of unspecified artificial knee joint (11/13/22) Surgery Performed Operation Date: 11/13/22 12:00 Actual Procedures p Total Knee Arthroplasty(Left) - Inna Heart MD Physical Therapy Treatment Note M2 PT-IP Current Condition Start: 11/14/22 12:04 Freq: NEEDED Status: Active Protocol: Document 11/14/22 12:04 ES (Rec: 11/14/22 12:19 ES [id number]) Physical Therapy Current Condition Current Condition Evaluation Date 11/14/22 Treatment Diagnosis s/p L TKA Onset Date 11/13/22 M3 PT-IP Subjective Start: 11/14/22 12:04 Freq: NEEDED Status: Active Protocol: Document 11/14/22 14:25 ES (Rec: 11/14/22 14:31 ES [id number]) Subjective Physical Therapy Visit Type Type Treatment Note Visit Start Time 14:03 Visit Stop Time 14:22 Total Visit Minutes 19 Number of CASTING AND CURING OPERATOR Visits 0 Physical Therapy Visit Comments Patient Comments Patient drowsy; had received pain meds prior to tx. Patient agreed to work with PT. Therapy Pain Assessment Pain When Pain Assessed At Rest Pain Present Pain Present Denied Pain M4 PT-IP Mobility and Gait Start: 11/14/22 12:04 Freq: NEEDED Status: Active Protocol: Document 11/14/22 12:04 ES (Rec: 11/14/22 12:19 ES [id number]) PT-Bed Mobility Assessment Supine to Sit Supine to Sit Standby Assistance,Bedrails Scooting Scooting to Edge of Bed Independent PT-Transfer Assessment Sit to and From Stand Sit to and from Stand Standby Assistance,Use of Upper Extremities Equipment Transfer Assistive Device Gait Belt,Front Wheeled Walker Orthotic/Prosthetic Devices or Brace: No Transfers Transfer Destination Chair,Toilet Transfer Technique Stand Step Pivot Transfer Ability Level of Assist Standby Assistance,Use of Upper Extremities Comments Mobility Comments Cued for hand placement for safety with FWW. Good recall of instructions for operative foot forward during sit to/ from stand. Gait Assessment Gait Gait Assistance Required: Contact Guard Assist Distance (Feet) 15 Able to Maintain Weight Bearing Status Yes During Gait Assistive Devices Assistive Device Gait Belt,Front Wheeled Walker Orthotic/Prosthetic Devices or Brace: No Gait Deviations General Gait Pattern Antalgic,Decreased Stride Length,Decreased Feet Clearance Factors Limiting Gait Function Factors Limiting Gait Function Decreased Strength,Limited Range of Motion,Pain Comments Gait Comments Ambulated initially with step- to gait with minimal L knee flexion, improving with cues. Required extra time due to decreased caden and velocity . PT-Balance Assessment Sitting Balance and Reactions Static Sitting Balance Ability Good Dynamic Sitting Balance Ability Good Standing Balance and Reactions Static Standing Balance Ability Good Dynamic Standing Balance Ability Fair Device Used FWW M5 PT-IP Objective Assessments Start: 11/14/22 12:04 Freq: NEEDED Status: Active Protocol: Document 11/14/22 12:04 ES (Rec: 11/14/22 12:19 ES [id number]) Orientation Orientation/Cognition Level of Alertness Lethargic Orientation Name,Age,Birthday,Month,Date, Year,Day of Week,Place, Situation Language Function Ability No Deficits Noted Safety Awareness Understands Safety Issues Memory Description No Deficits Noted Gross Range of Motion Upper Extremity ROM Assessment Within Functional Limits Lower Extremity ROM Assessment Left Impaired Impairments Decreased L knee ROM 2/2 surgery Strength Upper Extremity Strength Assessment Within Functional Limits Lower Extremity Strength Assessment Left Impaired Hip WFL Knee Grossly 3+/5 Ankle WFL Coordination Assessment Gross Coordination Gross Coordination WNL Sensation Assessment Sensation Gross Sensation WNL M6 PT-IP Treatment Start: 11/14/22 12:04 Freq: NEEDED Status: Active Protocol: Document 11/14/22 14:25 ES (Rec: 11/14/22 14:31 ES [id number]) Physical Therapy Treatment Exercises Exercises Ankle Pumps,Quad Sets,Heel Slides,Straight Leg Raises, Short Arc Quads Knee ROM Measurement 0-50 degrees L knee flexion supine Education Education Provided Post-Op Packet Other Treatments Other Treatment Performed Instructed to not put pillow under knee when resting. M7 PT-IP Assessment and Plan Start: 11/14/22 12:04 Freq: NEEDED Status: Active Protocol: Document 11/14/22 14:25 ES (Rec: 11/14/22 14:31 ES [id number]) PT Summary Assessment and Plan Potential Rehabilitation Potential Good Status of Condition at Evaluation Stable Summary Impairments Pain,ROM,Strength,Transfers, Gait Assessment Summary Patient was very drowsy during treatment, able to complete 5 reps of each exercise with cueing. She declined to get out of bed this visit. She will benefit from further PT to progress ambulation and exercises prior to d/c home. Goals Transfer Goal Independent,Front Wheeled Walker Gait Goal Independent,Front Wheel Walker Gait Distance 50 Other Goals Patient will be indep with HEP . Patient will demonstrate 0-90 degrees L knee flexion ROM. Days to Meet Goals 3 Frequency of Treatment Frequency Of Treatment Twice a Day Treatment Plan Physical Therapy Treatment Plan Transfer Training,Gait Training,Therapeutic Exercise, Post Op Education,Discharge Planning,Hot or Cold Pack, Manual Therapy Other Recommendations and Next Treatment Review post-op packet/ Focus instructions and TKA HEP. Progress ambulation. Weight Bearing Status Weight Bearing Status Weight Bear as Tolerated Recommendations To Nursing Amount of Assist Needed Standby Assistance Discharge Recommendations PT Discharge Recommendations Home with Assistance,Home Health Transportation Needs at Discharge Private Vehicle
--- NOTE | 2022-11-14 14:33 | CM.DANOTE ---
Discharge Planning/Care Management CM Discharge Assessment Start: 11/14/22 14:19 Freq: Status: Active Protocol: Document 11/14/22 14:19 BRAD (Rec: 11/14/22 14:33 BRAD [id number]) Discharge Planning Assessment Assigned Lapidarist FRIDA Brown DPOA/Assigned Designee Name Pily Ontiveros, daughter (Farhad) Contact Information [phone] or [phone] Advance Directives? Yes: POLST Advance Directives on File Yes History Provided By Patient,Family Member,Medical Record Prior Living Arrangements Apartment/Condo Household Members none Type of transporation used prior to Relies on Others admit Independent with ADL's Yes: poor activity tolerance, uses 4ww Is patient alert and oriented? Yes Needs Assistance With Managing Medications,Home Chores / Shopping Patient/Family Preference Home with Home Health Barriers to Discharge No Comment Pt is POD#1 from p Total Knee Arthroplasty w/ Dr Heart . Payer: Medicare/[employer]. Met w/patient and her daughter Pily, introduced self and role. Patient quite groggy, tells this CADDY/CADDIE SUPERVISOR that it is okay to speak with her daughter about her care and about DC planning Outside of room, daughter tells this CADDY/CADDIE SUPERVISOR that family relationships are strained r/t patient's ongoing MH issues and non-compliance or stubborness. Daughter questions whether SNF would be available and this CADDY/CADDIE SUPERVISOR explained patient will be under an OBS stay likely w/o [facility] SNF benefit. Patient does not have any finances to pay for facility or caregiver. Recommended [facility] services discussed, HH options reviewed and no agency preference so placed call and referral to [facility] who has next week availability for patient Thankfully, patient cleared by therapy for return home w/HH which is anticipated tomorrow 11.15.22. Transport TBD Plan: Discharge likely home tomorrow, w/family to transport, neighbor at the apt complex to assist as needed, daughters to assist w/driving and meals likely, [facility] for RN/ PT/OT/RN/CADDY/CADDIE SUPERVISOR (penitentiary care- [facility]) Full referral faxed to [facility] to include: completed and signed F2F, HH order, H+P. They need the DC Summary when it is available FRIDA Eid Discharge Plan Home with Home Health Transportation Arrangement Family Referrals Initiated Home Health Additional Comment [facility] Medicare Choice List Provided Yes Medicare choice list reviewed on family electronic tablet with SNF/HH Preference No pref Has Agency SNF been contacted Yes Comment [facility] RN/PT/OT/DUCT MAKER/CADDY/CADDIE SUPERVISOR
[2022-11-14] MEDS: MELATONIN 3 MG TABLET 9 MG PO (20:45)
[2022-11-14] MEDS: PRAMIPEXOLE 0.25 MG TABLET 0.5 MG PO (20:46)
[2022-11-14] MEDS: ATORVASTATIN 20 MG TABLET 10 MG PO (20:47)
[2022-11-15] VITALS (9 sets, daily range): BP systolic 101–125; BP diastolic 45–66; PULSE 65–75; RESP 14–18; TEMP 36.3–36.6; O2SAT 93–97
[2022-11-15] MEDS: ACETAMINOPHEN 325 MG TABLET 650 MG PO ×4 (03:12→21:24)
[2022-11-15] MEDS: IBUPROFEN 400 MG TABLET PO ×6 (03:13→23:22)
[2022-11-15] MEDS: OXYCODONE IR 5 MG TABLET PO ×2 (06:54→21:20)
[2022-11-15] MEDS: ASPIRIN EC 81 MG TABLET PO ×2 (08:10→21:18)
[2022-11-15] MEDS: DOCUSATE 100 MG CAPSULE PO ×2 (08:11→21:21)
[2022-11-15] MEDS: POTASSIUM CHLORIDE 10 MEQ TAB PO (08:11)
[2022-11-15] MEDS: carvediloL 3.125 MG TABLET PO ×2 (08:11→21:20)
[2022-11-15] MEDS: PREGABALIN 50 MG CAPSULE PO ×2 (08:11→21:21)
[2022-11-15] MEDS: TORSEMIDE 10 MG TABLET PO (08:12)
[2022-11-15] MEDS: VENLAFAXINE ER 75 MG CAP 225 MG PO (08:12)
[2022-11-15] MEDS: LOSARTAN 50 MG TABLET PO ×2 (08:12→21:21)
--- NOTE | 2022-11-15 09:21 | P.PN_ITS ---
Subjective Subjective Interval history: The patient complains of not being able to eat her breakfast due to her GERD. She says she has not had physical therapy take her outside of her hospital room yet. Exam Vital Signs (past 8 hours): - 11/15/22 06:00 11/15/22 08:11 11/15/22 08:12 Temperature 97.9 F Pulse Rate 70 75 75 Respiratory Rate 14 Blood Pressure 125/50 L 107/64 107/64 Pulse Oximetry 94 Oxygen Delivery Method Room Air Oxygen Flow Rate 0 Narrative Exam Narrative: Left knee wound is dressed with no drainage on the bandage. Calf is soft. Light touch and motion are intact in the left lower extremity. Objective Labs 11/14/22 06:25 [facility] Medical History (Updated 10/21/22 @ 14:43 by Karon Clay RN) Aortic stenosis, mild Arthritis Breast cancer, right (~1995) Bronchospasm Chronic bronchitis Chronic diastolic heart failure CKD (chronic kidney disease) COPD (chronic obstructive pulmonary disease) Depression Diabetes Eczema GERD (gastroesophageal reflux disease) Glaucoma Hearing impaired History of COVID-19 (06/2022) History of Mohs micrographic surgery for skin cancer (01/14/16) HTN (hypertension) Hyperlipidemia IBS (irritable bowel syndrome) Mitral stenosis Nephrolithiasis Pneumonia RLS (restless legs syndrome) Sciatica Sepsis (03/2020) Sleep apnea Surgical History (Updated 11/14/22 @ 10:27 by Maye Chun PA-C) History of arthroplasty of right knee (~2014) History of esophagogastroduodenoscopy (EGD) (05/12/22) History of lumbar fusion (09/08/18) History of lumbar fusion (12/29/18) History of nasal surgery Hx of bladder repair surgery Hx of cardiac cath (03/2022) Hx of cholecystectomy Hx of colonoscopy (05/12/22) Hx of thumb surgery Hx of tonsillectomy S/P repair of paraesophageal hernia (06/25/22) Status post cataract extraction of both eyes with insertion of intraocular lens Social History household members: none Smoking Status: Former smoker alcohol intake: current Assessment & Plan Post-op Postoperative Procedures: Procedures Operation Date: 11/13/22 12:00 Actual Procedure Side Surgeon p Total Knee Arthroplasty Left Inna Heart MD Postoperative day: 2 Postoperative status: doing well and other (GERD has been aggravated) Postoperative status narrative: Generally she is making slow progress with physical therapy. She is not yet been able to get outside the hospital room. Postoperative plan: routine post-op care and ambulate Postoperative plan narrative: Additional physical therapy today. She should be able to discharge home with home health physical therapy tomorrow. We will continue her Protonix and elevate the head of her bed for her GERD. Time Spent With Patient Time with patient: less than 15 minutes Quality VTE Deep Vein Thrombosis/Pulmonary Embolism Present on Admission: No
[2022-11-15] MEDS: PANTOPRAZOLE 40 MG VIAL IV (09:30)
[2022-11-15] MEDS: OXYCODONE IR 10 MG TABLET PO ×2 (10:24→13:11)
--- NOTE | 2022-11-15 11:26 | PT.IPTN ---
Current Diagnoses Unilateral primary osteoarthritis, left knee (11/13/22) Presence of unspecified artificial knee joint (11/13/22) Surgery Performed Operation Date: 11/13/22 12:00 Actual Procedures p Total Knee Arthroplasty(Left) - Inna Heart MD Physical Therapy Treatment Note M2 PT-IP Current Condition Start: 11/14/22 12:04 Freq: NEEDED Status: Active Protocol: Document 11/14/22 12:04 ES (Rec: 11/14/22 12:19 ES [id number]) Physical Therapy Current Condition Current Condition Evaluation Date 11/14/22 Treatment Diagnosis s/p L TKA Onset Date 11/13/22 M3 PT-IP Subjective Start: 11/14/22 12:04 Freq: NEEDED Status: Active Protocol: Document 11/15/22 11:02 KS (Rec: 11/15/22 12:24 KS [id number]) Subjective Physical Therapy Visit Type Type Treatment Note Visit Start Time 11:02 Visit Stop Time 11:26 Total Visit Minutes 24 Notes dtr present Number of PROFESSOR OF VOICE Visits 1 Physical Therapy Visit Comments Patient Comments Needs to be pre medicated Therapy Pain Assessment Pain When Pain Assessed At Rest Pain Present Pain Present Denied Pain M4 PT-IP Mobility and Gait Start: 11/14/22 12:04 Freq: NEEDED Status: Active Protocol: Document 11/15/22 11:02 KS (Rec: 11/15/22 12:24 KS [id number]) PT-Bed Mobility Assessment Sit to Supine Sit to Supine Moderate Assistance,1 Person Assistance PT-Transfer Assessment Sit to and From Stand Sit to and from Stand Moderate Assistance,1 Person Assistance,Use of Upper Extremities Equipment Transfer Assistive Device Gait Belt,Front Wheeled Walker Orthotic/Prosthetic Devices or Brace: No Transfers Transfer Destination Bed,Toilet Transfer Technique ambulated Transfer Ability Level of Assist Moderate Assistance,1 Person Assistance,Use of Upper Extremities Comments Mobility Comments Pt in chair upon arrival, agreeable to ambulate after meds. Mod A for sit<>Stand from low chair w/ FWW. Ambulated ~30 ft in room w/ CGA using FWW. Then used bahtroom, Mod A for slow descent and for stand after voiding. Able to perform own pericare but requires assistance for donning/doffing pants. Pt then ambulated to bed, required Mod A for LLE elevation into bed. Left in bed w/ all needs in reach. Gait Assessment Gait Gait Assistance Required: Contact Guard Assist Distance (Feet) 30 Able to Maintain Weight Bearing Status Yes During Gait Assistive Devices Assistive Device Gait Belt,Front Wheeled Walker Orthotic/Prosthetic Devices or Brace: No Gait Deviations General Gait Pattern Antalgic,Decreased Stride Length,Decreased Feet Clearance Factors Limiting Gait Function Factors Limiting Gait Function Decreased Strength,Limited Range of Motion,Pain Comments Gait Comments Gait improves w/ distance. PT-Balance Assessment Sitting Balance and Reactions Static Sitting Balance Ability Good Dynamic Sitting Balance Ability Good Standing Balance and Reactions Static Standing Balance Ability Good Dynamic Standing Balance Ability Fair Device Used FWW M5 PT-IP Objective Assessments Start: 11/14/22 12:04 Freq: NEEDED Status: Active Protocol: Document 11/14/22 12:04 ES (Rec: 11/14/22 12:19 ES [id number]) Orientation Orientation/Cognition Level of Alertness Lethargic Orientation Name,Age,Birthday,Month,Date, Year,Day of Week,Place, Situation Language Function Ability No Deficits Noted Safety Awareness Understands Safety Issues Memory Description No Deficits Noted Gross Range of Motion Upper Extremity ROM Assessment Within Functional Limits Lower Extremity ROM Assessment Left Impaired Impairments Decreased L knee ROM 2/2 surgery Strength Upper Extremity Strength Assessment Within Functional Limits Lower Extremity Strength Assessment Left Impaired Hip WFL Knee Grossly 3+/5 Ankle WFL Coordination Assessment Gross Coordination Gross Coordination WNL Sensation Assessment Sensation Gross Sensation WNL M6 PT-IP Treatment Start: 11/14/22 12:04 Freq: NEEDED Status: Active Protocol: Document 11/15/22 11:02 KS (Rec: 11/15/22 12:24 KS [id number]) Physical Therapy Treatment Exercises Exercises Ankle Pumps,Gluteal Sets,Quad Sets,Heel Slides,Straight Leg Raises Education Education Provided Post-Op Packet M7 PT-IP Assessment and Plan Start: 11/14/22 12:04 Freq: NEEDED Status: Active Protocol: Document 11/15/22 11:02 KS (Rec: 11/15/22 12:24 KS [id number]) PT Summary Assessment and Plan Potential Rehabilitation Potential Good Summary Impairments Pain,ROM,Strength,Transfers, Gait Progress Towards Goals Slow Progress due to Pain,Slow Progress due to Activity Tolerance Assessment Summary Pt cont to make slow progress. Able to inc amb distance to 30 ft w/ FWW. Requires Mod A for sit<>stand today. Unsure if pt has necessary assistance at home and may benefit from SNF to improve functional mobility. If she does go home, will need caregiver training w/ pts friend Maritza who plans to help. Pt unsure how long she can stay. Goals Transfer Goal Independent,Front Wheeled Walker Gait Goal Independent,Front Wheel Walker Gait Distance 50 Other Goals Patient will be indep with HEP . Patient will demonstrate 0-90 degrees L knee flexion ROM. Days to Meet Goals 3 Frequency of Treatment Frequency Of Treatment Twice a Day Treatment Plan Physical Therapy Treatment Plan Transfer Training,Gait Training,Therapeutic Exercise, Post Op Education,Discharge Planning,Hot or Cold Pack, Manual Therapy Other Recommendations and Next Treatment Review post-op packet/ Focus instructions and TKA HEP. Progress ambulation. Weight Bearing Status Weight Bearing Status Weight Bear as Tolerated Recommendations To Nursing Amount of Assist Needed Standby Assistance Discharge Recommendations PT Discharge Recommendations Home with Assistance,Home Health,Home vs SNF Transportation Needs at Discharge Private Vehicle,Wheelchair/ Cabulance
--- NOTE | 2022-11-15 13:14 | CM.DPNOTE ---
DCP: Reviewed chart. Per notes, patient did not get up with therapy yesterday therefore, having therapy today with current d/c plan to go home tomorrow 11-16-22 with home health through [facility]. OPERATIONS VOCATIONAL INSTRUCTOR confirmed plan with patient and daughter/Velia. Daughter reports that she or her sister will drop off caregiver in AM for caregiver training. TECHNOLOGY RECRUITER/Susan made aware and will make sure that therapy knows for tomorrow in AM. P: Home with home health through [facility]. D/C summary needs to be faxed to [facility] and a call letting them know patient is discharging. NUZHAT
--- NOTE | 2022-11-15 13:23 | PT.IPTN ---
Current Diagnoses Unilateral primary osteoarthritis, left knee (11/13/22) Presence of unspecified artificial knee joint (11/13/22) Surgery Performed Operation Date: 11/13/22 12:00 Actual Procedures p Total Knee Arthroplasty(Left) - Inna Heart MD Physical Therapy Treatment Note M2 PT-IP Current Condition Start: 11/14/22 12:04 Freq: NEEDED Status: Active Protocol: Document 11/14/22 12:04 ES (Rec: 11/14/22 12:19 ES [id number]) Physical Therapy Current Condition Current Condition Evaluation Date 11/14/22 Treatment Diagnosis s/p L TKA Onset Date 11/13/22 M3 PT-IP Subjective Start: 11/14/22 12:04 Freq: NEEDED Status: Active Protocol: Document 11/15/22 13:00 KS (Rec: 11/15/22 14:03 KS [id number]) Subjective Physical Therapy Visit Type Type Treatment Note Visit Start Time 13:00 Visit Stop Time 13:23 Total Visit Minutes 23 Number of CATALYST IMPREGNATOR Visits 2 Physical Therapy Visit Comments Patient Comments Agreeable to ambulate Therapy Pain Assessment Pain When Pain Assessed During Mobility Pain Present Pain Present Pain Reported Location Left Knee Intensity 6 Scale Used Numeric (0 - 10) Description Aching Pain Behaviors Guarding Pain Management Techniques Distraction,Modification of Treatment M4 PT-IP Mobility and Gait Start: 11/14/22 12:04 Freq: NEEDED Status: Active Protocol: Document 11/15/22 13:00 KS (Rec: 11/15/22 14:03 KS [id number]) PT-Bed Mobility Assessment Supine to Sit Supine to Sit Minimal Assistance,1 Person Assistance,Bedrails PT-Transfer Assessment Sit to and From Stand Sit to and from Stand Contact Guard Assistance,1 Person Assistance,Use of Upper Extremities Equipment Transfer Assistive Device Gait Belt,Front Wheeled Walker Orthotic/Prosthetic Devices or Brace: No Transfers Transfer Destination Bed Transfer Technique ambulated Transfer Ability Level of Assist Minimal Assistance Comments Mobility Comments Pt in bed upon arrival, agreeable to ambulate. Required Min A for sup<>sit w/ bedrails and HOB elevated. CGA for sit<>stand from bed w/ FWW. Pt ambulated ~100 ft w/ FWW and CGA. Gait improved w/ distance. Cues for knee extension and step through pattern. Pt returned to room and bed CGA. Left in bed w/ all needs in reach. Gait Assessment Gait Gait Assistance Required: Contact Guard Assist Distance (Feet) 100 Able to Maintain Weight Bearing Status Yes During Gait Assistive Devices Assistive Device Gait Belt,Front Wheeled Walker Orthotic/Prosthetic Devices or Brace: No Gait Deviations General Gait Pattern Antalgic,Decreased Stride Length,Decreased Feet Clearance Factors Limiting Gait Function Factors Limiting Gait Function Decreased Strength,Limited Range of Motion,Pain Comments Gait Comments Gait improves w/ distance. Amb 100 ft, cues for knee ext. PT-Balance Assessment Sitting Balance and Reactions Static Sitting Balance Ability Good Dynamic Sitting Balance Ability Good Standing Balance and Reactions Static Standing Balance Ability Good Dynamic Standing Balance Ability Good Device Used FWW M5 PT-IP Objective Assessments Start: 11/14/22 12:04 Freq: NEEDED Status: Active Protocol: Document 11/14/22 12:04 ES (Rec: 11/14/22 12:19 ES [id number]) Orientation Orientation/Cognition Level of Alertness Lethargic Orientation Name,Age,Birthday,Month,Date, Year,Day of Week,Place, Situation Language Function Ability No Deficits Noted Safety Awareness Understands Safety Issues Memory Description No Deficits Noted Gross Range of Motion Upper Extremity ROM Assessment Within Functional Limits Lower Extremity ROM Assessment Left Impaired Impairments Decreased L knee ROM 2/2 surgery Strength Upper Extremity Strength Assessment Within Functional Limits Lower Extremity Strength Assessment Left Impaired Hip WFL Knee Grossly 3+/5 Ankle WFL Coordination Assessment Gross Coordination Gross Coordination WNL Sensation Assessment Sensation Gross Sensation WNL M6 PT-IP Treatment Start: 11/14/22 12:04 Freq: NEEDED Status: Active Protocol: Document 11/15/22 13:00 KS (Rec: 11/15/22 14:03 KS [id number]) Physical Therapy Treatment Exercises Exercises Ankle Pumps Education Education Provided Post-Op Packet M7 PT-IP Assessment and Plan Start: 11/14/22 12:04 Freq: NEEDED Status: Active Protocol: Document 11/15/22 13:00 KS (Rec: 11/15/22 14:03 KS [id number]) PT Summary Assessment and Plan Potential Rehabilitation Potential Good Summary Impairments Pain,ROM,Strength,Transfers, Gait Progress Towards Goals Slow Progress due to Pain,Slow Progress due to Activity Tolerance Assessment Summary Pt showing improved mobility and tolerance for ambulation this PM. Min A for bed mobility and CGA for transfers and ambulation w/ FWW. States caregiver Maritza will be coming at 9 AM tomorrow, if training goes well anticipate pt will be safe to dc home w/ Maritza who pt states will be there 08/02 for 3 days. Pt will need HHPT. Goals Transfer Goal Independent,Front Wheeled Walker Gait Goal Independent,Front Wheel Walker Gait Distance 50 Other Goals Patient will be indep with HEP . Patient will demonstrate 0-90 degrees L knee flexion ROM. Days to Meet Goals 3 Frequency of Treatment Frequency Of Treatment Twice a Day Treatment Plan Physical Therapy Treatment Plan Transfer Training,Gait Training,Therapeutic Exercise, Post Op Education,Discharge Planning,Hot or Cold Pack, Manual Therapy Other Recommendations and Next Treatment Review post-op packet/ Focus instructions and TKA HEP. Progress ambulation. Weight Bearing Status Weight Bearing Status Weight Bear as Tolerated Recommendations To Nursing Amount of Assist Needed Standby Assistance Discharge Recommendations PT Discharge Recommendations Home with Assistance,Home Health Transportation Needs at Discharge Private Vehicle
--- NOTE | 2022-11-15 18:58 | PC.NURSE ---
Pt stated she wanted to speak to Beckie from d/c planning to let her know that her daughter isn't able to bring caregiver to PT training tomorrow until 1000, instead of the expected time @ 0900.
[2022-11-15] MEDS: MELATONIN 3 MG TABLET 9 MG PO (21:18)
[2022-11-15] MEDS: ATORVASTATIN 20 MG TABLET 10 MG PO (21:19)
[2022-11-15] MEDS: PANTOPRAZOLE DR 40 MG TABLET PO (21:19)
[2022-11-15] MEDS: PRAMIPEXOLE 0.25 MG TABLET 0.5 MG PO (21:21)
[2022-11-16] MEDS: ACETAMINOPHEN 325 MG TABLET 650 MG PO ×2 (03:48→07:52)
[2022-11-16] MEDS: IBUPROFEN 400 MG TABLET PO ×3 (03:48→10:35)
[2022-11-16] MEDS: OXYCODONE IR 5 MG TABLET PO (03:52)
[2022-11-16 06:00] VITALS: BP 157/65; PULSE 76; RESP 19; O2SAT 95
[2022-11-16] MEDS: OXYCODONE IR 10 MG TABLET PO (06:46)
[2022-11-16 07:48] VITALS: BP 157/65; PULSE 73
[2022-11-16] MEDS: carvediloL 3.125 MG TABLET PO (07:48)
[2022-11-16] MEDS: TORSEMIDE 10 MG TABLET PO (07:48)
[2022-11-16] MEDS: DOCUSATE 100 MG CAPSULE PO (07:48)
[2022-11-16] MEDS: ASPIRIN EC 81 MG TABLET PO (07:48)
[2022-11-16] MEDS: PREGABALIN 50 MG CAPSULE PO (07:48)
[2022-11-16 07:49] VITALS: BP 157/65; PULSE 73
[2022-11-16] MEDS: PANTOPRAZOLE DR 40 MG TABLET PO (07:49)
[2022-11-16] MEDS: POTASSIUM CHLORIDE 10 MEQ TAB PO (07:49)
[2022-11-16] MEDS: LOSARTAN 50 MG TABLET PO (07:49)
[2022-11-16] MEDS: VENLAFAXINE ER 75 MG CAP 225 MG PO (07:50)
--- NOTE | 2022-11-16 11:43 | PT.IPTN ---
Current Diagnoses Unilateral primary osteoarthritis, left knee (11/14/22) Presence of unspecified artificial knee joint (11/14/22) Surgery Performed Operation Date: 11/13/22 12:00 Actual Procedures p Total Knee Arthroplasty(Left) - Inna Heart MD Physical Therapy Treatment Note M2 PT-IP Current Condition Start: 11/14/22 12:04 Freq: NEEDED Status: Active Protocol: Document 11/14/22 12:04 ES (Rec: 11/14/22 12:19 ES [id number]) Physical Therapy Current Condition Current Condition Evaluation Date 11/14/22 Treatment Diagnosis s/p L TKA Onset Date 11/13/22 M3 PT-IP Subjective Start: 11/14/22 12:04 Freq: NEEDED Status: Active Protocol: Document 11/16/22 11:43 AW (Rec: 11/16/22 12:49 AW [id number]) Subjective Physical Therapy Visit Type Type Treatment Note Visit Start Time 11:25 Visit Stop Time 11:43 Total Visit Minutes 18 Notes Pt's caregiver/neighbor, Maritza, was present for CGT Number of EPIC APPLICATION COORDINATOR Visits 0 Physical Therapy Visit Comments Patient Comments Pt agreeable to work with PT Patient Goals Hopeful to discharge today Therapy Pain Assessment Pain When Pain Assessed During Mobility Pain Present Pain Present Pain Reported Location Left Knee Intensity 2 Scale Used Numeric (0 - 10) M4 PT-IP Mobility and Gait Start: 11/14/22 12:04 Freq: NEEDED Status: Active Protocol: Document 11/16/22 11:43 AW (Rec: 11/16/22 12:49 AW [id number]) PT-Bed Mobility Assessment Supine to Sit Supine to Sit Standby Assistance Sit to Supine Sit to Supine Standby Assistance Scooting Scooting to Edge of Bed Standby Assistance PT-Transfer Assessment Sit to and From Stand Sit to and from Stand Standby Assistance,Use of Upper Extremities Equipment Transfer Assistive Device Gait Belt,Front Wheeled Walker Orthotic/Prosthetic Devices or Brace: No Transfers Transfer Destination Bed,Chair,Toilet Transfer Technique ambulated with FWW Transfer Ability Level of Assist Standby Assistance Comments Mobility Comments Pt was lying in bed visiting with her friend who was present for caregiver training . CG was able to don and doff the gait belt independently. Pt completed all mobility with SBA using FWW and her friend was able to provide appropriate cues throughout. Pt got up to edge of bed, transferred to the chair, walked in the halls, and completed a toilet transfer with no more than SBA. Gait Assessment Gait Gait Assistance Required: Standby Assistance Distance (Feet) 120 Able to Maintain Weight Bearing Status Yes During Gait Assistive Devices Assistive Device Gait Belt,Front Wheeled Walker Orthotic/Prosthetic Devices or Brace: No Gait Deviations General Gait Pattern Antalgic,Decreased Stride Length,Decreased Feet Clearance Factors Limiting Gait Function Factors Limiting Gait Function Decreased Strength,Limited Range of Motion,Pain Comments Gait Comments Improvement noted in stride length and symmetry today, indicating less antalgia. Stair Climbing Assessment Comments Stair Climbing Comments No stairs at home. PT-Balance Assessment Sitting Balance and Reactions Static Sitting Balance Ability Good Dynamic Sitting Balance Ability Good Standing Balance and Reactions Static Standing Balance Ability Good Dynamic Standing Balance Ability Good Device Used FWW M5 PT-IP Objective Assessments Start: 11/14/22 12:04 Freq: NEEDED Status: Active Protocol: Document 11/14/22 12:04 ES (Rec: 11/14/22 12:19 ES [id number]) Orientation Orientation/Cognition Level of Alertness Lethargic Orientation Name,Age,Birthday,Month,Date, Year,Day of Week,Place, Situation Language Function Ability No Deficits Noted Safety Awareness Understands Safety Issues Memory Description No Deficits Noted Gross Range of Motion Upper Extremity ROM Assessment Within Functional Limits Lower Extremity ROM Assessment Left Impaired Impairments Decreased L knee ROM 2/2 surgery Strength Upper Extremity Strength Assessment Within Functional Limits Lower Extremity Strength Assessment Left Impaired Hip WFL Knee Grossly 3+/5 Ankle WFL Coordination Assessment Gross Coordination Gross Coordination WNL Sensation Assessment Sensation Gross Sensation WNL M6 PT-IP Treatment Start: 11/14/22 12:04 Freq: NEEDED Status: Active Protocol: Document 11/16/22 11:43 AW (Rec: 11/16/22 12:49 AW [id number]) Physical Therapy Treatment Exercises Exercises Ankle Pumps,Quad Sets,Heel Slides,Short Arc Quads,Passive Knee Extension Hang Knee ROM Measurement 0-70 Education Education Provided Weight Bearing Status,Post-Op Packet,Safety Other Treatments Other Treatment Performed Pt completed x 8 of each exercise listed above as well as hamstring sets/heel digs. Pt's friend participated in caregiver training and was able to don/doff the gait belt , to provide appropriate level of assist (SBA today), and cues for safe mobility. M7 PT-IP Assessment and Plan Start: 11/14/22 12:04 Freq: NEEDED Status: Active Protocol: Document 11/16/22 11:43 AW (Rec: 11/16/22 12:49 AW [id number]) PT Summary Assessment and Plan Potential Rehabilitation Potential Good Summary Impairments Pain,ROM,Strength,Transfers, Gait Progress Towards Goals Progressing Toward Goals,Safe For Discharge Assessment Summary Pt improved her mobility significantly this date with no more than SBA required for transfer and gait with FWW. Pt has all needed equipment at home and will have her friend to stay with her for several days at discharge. No further acute PT needs are identified. Pt is safe to discharge home with assist. She will require PT as leaving her home will be too onerous at this time. Goals Transfer Goal Independent,Front Wheeled Walker Gait Goal Independent,Front Wheel Walker Gait Distance 50 Other Goals Patient will be indep with HEP . Patient will demonstrate 0-90 degrees L knee flexion ROM. Days to Meet Goals 3 Frequency of Treatment Frequency Of Treatment Discharge Weight Bearing Status Weight Bearing Status Weight Bear as Tolerated Recommendations To Nursing Amount of Assist Needed Standby Assistance Discharge Recommendations PT Discharge Recommendations Home with Assistance,Home Health Transportation Needs at Discharge Private Vehicle
--- NOTE | 2022-11-16 12:15 | P.DS_ITS ---
History of Present Illness History of Present Illness Date Patient Seen: 11/16/22 Time Patient Seen: 07:15 Chief complaint: Left total knee arthroplasty Narrative: Patient is resting comfortably in bed this morning. She states physical therapy has gone well. She is looking forward to discharging home today. Denies fever, chills, numbness and tingling in the extremities, chest pain, shortness of breath. Discharge Providers Provider Date of admission: 11/14/22 12:54 Discharge Date: 11/16/22 Primary care physician: Silva Reese MD Consults: 10/21/22 14:42 Consult to Anesthesiology Routine Comment: Consulting Provider: Anesthesiologist Reason for consultation: Surgeon requested re: Multiple medical problems 11/12/22 06:00 Consult to Anesthesiology Routine Comment: Consulting Provider: Anesthesiologist Reason for consultation: Regional block for post operative pain control 11/13/22 14:58 Consult to Discharge Planning Routine Comment: Consult to Physical Therapy Evaluate & Treat Comment: Physician Instructions: postop TKA protocol 11/14/22 13:03 Consult to Home Health Routine Comment: Reason For Exam: Home health upon discharge 11/16/22 10:20 Consult to Speech Therapy Evaluate & Treat Comment: Physician Instructions: Evaluate and treat Discharge provider: Pily Saucedo PA-C Summary Hospital Course Discharge Diagnosis: S/p left total knee arthroplasty Hospital Course: Operative Date/Time/Diagnoses Date of procedure: 11/13/22 Time of procedure: 12:15 Pre-op diagnosis: Left knee severe OA Post-op diagnosis: same Procedure & Clinicians Procedure: left total knee arthroplasty Same procedure as scheduled: Yes Indications: The patient has had progressively worsening left knee pain with radiographic changes consistent with arthritis. Non-operative management has failed and the patient has requested total knee replacement. The risks, benefits and alternatives to surgery were discussed with the patient prior to proceeding. Risks discussed included, but were not limited to, failure to relieve pain, stiffness, infection, nerve damage, deep venous thrombosis, pulmonary embolism, stroke, coma, heart attack, permanent paralysis and , as well as the potential need for eventual revision of the prosthetic. Surgeon: Inna Heart Back Tender: Santa Kelly Anesthesia Type: Spinal Operative Notes Findings: Severe left knee OA, adequate stability Closure Type: primary Specimen(s): none sent Prosthetic devices, grafts, tissues, transplants, or devices: [employer] BCS 2 size 5 femur, size 4 tibia, +9 poly, 35 x 7.5 mm round patella Estimated Blood Loss (mL): 250 Blood products transfused: none Tourniquet time (min): 59 Status at Discharge Cognitive/behavioral status at discharge: oriented Functional status at discharge: uses cane/walker Overall status at discharge: patient is progressing back to baseline Exam Vital Signs (past 8 hours): - 11/16/22 06:00 11/16/22 07:48 11/16/22 07:49 Pulse Rate 76 73 73 Respiratory Rate 19 Blood Pressure 157/65 H 157/65 H 157/65 H Pulse Oximetry 95 Oxygen Delivery Method Room Air Oxygen Flow Rate 0 Narrative Exam Narrative: Pleasant 69-year-old female. Awake, alert, and oriented. Intraoperative left knee dressing clean, dry, and intact. or manager in tact. Strength and sensation intact to bilateral lower extremities. Bilateral calf soft, c ompressible, nontender with no palpable cords or masses. Objective Labs 11/14/22 06:25 [facility] Medical History (Updated 10/21/22 @ 14:43 by Karon Clay RN) Aortic stenosis, mild Arthritis Breast cancer, right (~1995) Bronchospasm Chronic bronchitis Chronic diastolic heart failure CKD (chronic kidney disease) COPD (chronic obstructive pulmonary disease) Depression Diabetes Eczema GERD (gastroesophageal reflux disease) Glaucoma Hearing impaired History of COVID-19 (06/2022) History of Mohs micrographic surgery for skin cancer (01/14/16) HTN (hypertension) Hyperlipidemia IBS (irritable bowel syndrome) Mitral stenosis Nephrolithiasis Pneumonia RLS (restless legs syndrome) Sciatica Sepsis (03/2020) Sleep apnea Surgical History (Updated 11/14/22 @ 10:27 by Maye Chun PA-C) History of arthroplasty of right knee (~2014) History of esophagogastroduodenoscopy (EGD) (05/12/22) History of lumbar fusion (09/08/18) History of lumbar fusion (12/29/18) History of nasal surgery Hx of bladder repair surgery Hx of cardiac cath (03/2022) Hx of cholecystectomy Hx of colonoscopy (05/12/22) Hx of thumb surgery Hx of tonsillectomy S/P repair of paraesophageal hernia (06/25/22) Status post cataract extraction of both eyes with insertion of intraocular lens Social History household members: none Smoking Status: Former smoker alcohol intake: current Discharge Assessment & Plan Assessment and Plan Assessment: Patient is progressing as expected after left total knee arthroplasty Plan of Treatment: Multimodal pain regimen, continue with physical therapy set up for home health, ice to knee as needed. Follow up with Orthopedics in 2 weeks, keep intraoperative dressing clean, dry, and intact until this time. Discharge Plan Discharge Plan Patient Disposition: Home Discharge orders & Medications Prescriptions: Continued losartan 50 mg Tablet 50 mg PO BID potassium chloride 10 mEq Tablet Extended Release 10 meq PO DAILY aspirin 81 mg Tablet,Delayed Release (Dr/Ec) 81 mg PO DAILY pramipexole 0.5 mg Tablet 0.5 mg PO BEDTIME venlafaxine 75 mg Tablet 75 mg PO DAILY torsemide 20 mg Tablet 10 mg PO DAILY hydrocodone-acetaminophen 5-325 mg Tablet 1 tab PO TID lovastatin 40 mg Tablet 40 mg PO QPM carvedilol 3.125 mg Tablet 3.125 mg PO BID Rx Instructions: must administer with a meal/food pregabalin 50 mg Capsule 50 mg PO BID venlafaxine 150 mg Tablet Extended Release 24hr 150 mg PO DAILY Patient Comments: Takes with 75mg daily lansoprazole 30 mg capsule,delayed release(DR/EC) 30 mg PO BID Follow up/Referrals: Silva Reese MD [Primary Care Provider] - Inna Heart MD [Physician] - As previously scheduled (Follow up w/ Maye Chun PA-C, on 11/26/2022 @ 4:00 pm at [facility] in [place].) Diet/Activity/Treatments Diet: Diet as Tolerated Activity: Weight bearing as tolerated Cold/Heat Therapy: Ice to knee as needed Skin/Wound/Dressing Care Report to your healthcare provider any signs of infection, such as:: chills, fever, night sweats, unusual drainage and unusual redness Dressing: Keep dressing clean, dry, and intact until 2 week follow up with orthopedics Visit Report/Discharge Packet Instructions: DI for Knee Replacement Stand Alone Forms: Patient Portal/API, Stroke Signs & Symptoms Discharge Data Primary Care Provider: Silva Reese Attending Provider: Inna Heart Admit Date/Time: 11/14/22 12:54 Quality VTE Deep Vein Thrombosis/Pulmonary Embolism Present on Admission: No
--- NOTE | 2022-11-16 13:27 | PC.NURSE ---
Discharge Note Patient A&O, VSS, RA, no complaints of pain/discomfort. Caregiver training completed by patient's neighbor. Patient agreeable to discharge plan. Discharge packet reviewed with patient, all questions/concerns addressed. Medication regimen for GERD clarified with KATHIE Saucedo, patient agreeable to plan to continue home regimen. Daughter's questions/concerns addressed. PIV discontinued. Patient able to dress self and pack all belongings with daughter's assistance. Patient taken down via wheelchair to [facility].
--- NOTE | 2022-11-16 14:49 | CM.DPC ---
DCP/continued: Reviewed chart. Patient with orders to d/c today. Met with patient and she is aware and agreeable to d/c home with caregiver. Received call from daughter re: d/c plan. Daughter believes that patient would be better off at SNF. Daughter reports being misled by Orthopedic office. Apologized to daughter for any confusion but that does not change patient's OBS status. Daughter reports that patient having trouble swallowing? ST evaluation ordered this AM. Patient seen by ST and cleared. In addition cargiver training took place with caregiver. Brochure for [facility] provided to patient. No additional needs identified. P: Home today with [facility]. NOLAND
--- NOTE | 2022-11-16 15:37 | ST.IPCSEOM ---
Visit Care Team Role Provider Type Luciano Sheikh DO Other Providers Physician Specialty: Anesthesiology Address: [address] [place] [address], [id number] Email: Fermin Lam MD Other Providers Physician Specialty: Anesthesiology Address: [address] [place] [address], [address] Email: Munir Rainey MD Other Providers Physician Specialty: Anesthesiology Address: [address] [place] [address], [address] Phone: Fax: Email: [email or web address] Eolise Castellano MD Other Providers Physician Specialty: Anesthesiology Address: [address] [place] [address], [address] Phone: Fax: Email: Arnol Ramirez MD Other Providers Physician Specialty: Anesthesiology Address: [address] [place] [address], [address] Email: Kaleb Contreras MD Other Providers Physician Specialty: Anesthesiology Address: [address] [place] [address], [id number] Email: Karon Bustos MD Other Providers Physician Specialty: Anesthesiology Address: [address] [place] [address], [address] Email: Santa Ingram MD Other Providers Physician Specialty: Anesthesiology Address: Phone: Fax: Email: [email or web address] Jennifer Colin MD Other Providers Physician Specialty: Anesthesiology Address: [address] [place] [address], [address] Email: Primo Suarez MD Other Providers Physician Specialty: Anesthesiology Address: [address] [place] [address], [address] Email: Silva Reese MD Family Provider Non-Staff Primary Care Provider Specialty: Medical Address: [address] [place] [address], [place], [address] Email: Inna Heart MD Admit Provider Physician Attending Provider Referring Provider Specialty: Orthopedics Orthopedic Surgery Address: [address] [place] [address], [place], [address] Email: [email or web address] Current Diagnoses Unilateral primary osteoarthritis, left knee (11/14/22) Presence of unspecified artificial knee joint (11/14/22) Past Medical History (Last Updated 10/21/22 @ 14:43 by Karon Clay RN) Aortic stenosis, mild (Medical) By ECHO 05/09/18 Arthritis (Medical) Breast cancer, right (Medical ~1995) Treated w/lumpectomy and radiation Bronchospasm (Medical) After radiation therapy Chronic bronchitis (Medical) r/t radiation to chest for breast cancer, resolved 1998 Chronic diastolic heart failure (Medical) CKD (chronic kidney disease) (Medical) COPD (chronic obstructive pulmonary disease) (Medical) Depression (Medical) Diabetes (Medical) Eczema (Medical) GERD (gastroesophageal reflux disease) (Medical) Glaucoma (Medical) Failed laser surgery, I have a lot of scar tissue on my eyes Hearing impaired (Medical) Bilateral hearing aids History of COVID-19 (Medical 06/2022) History of Mohs micrographic surgery for skin cancer (Medical 01/14/16) HTN (hypertension) (Medical) Hyperlipidemia (Medical) IBS (irritable bowel syndrome) (Medical) Mitral stenosis (Medical) Mild-moderate by ECHO 05/09/18 Nephrolithiasis (Medical) Pt passed stones without surgery Pneumonia (Medical) RLS (restless legs syndrome) (Medical) Sciatica (Medical) Sepsis (Medical 03/2020) Hospitalized with E. Coli and Pseudomonas positive blood cultures Sleep apnea (Medical) Does not tolerate CPAP Speech-Language Pathology Swallow Evaluation MANAGER OF GLOBAL Clinical Swallow Evaluation Start: 11/16/22 14:58 Freq: Status: Active Protocol: Document 11/16/22 14:59 BE (Rec: 11/16/22 15:36 BE [id number]) Clinical Swallow Evaluation Session Time Visit Start Time 11:00 Visit Stop Time 11:19 Total Visit Minutes 19 Setting Assessment Location Acute Care Visit Type Note Type Initial evaluation Patient Information Identification Type Name,Wristband History Per hospitalist, Nuria is a RHD 77-yearold woman who comes in today for evaluation of left knee pain. She notes about a 2-month history of aching into the left knee. She notes that its not hurting on a continujous basis but it does bother her occasionally. She also has some ongoing low back problems with intermittent tingling into the left leg. She is using a cane for balance. She has a history of a right total knee arthroplasty. The patient presents to clinic today for preoperative assessment for an upcoming left total knee arthroplasty at [facility] with Dr. Heart. Patient has hx of GERD. Possible stricture or mass in esophagus. Reported difficulty with swallowing breakfast. Subjective Observations Patient was reclined in bed when MANAGER OF GLOBAL entered room, and agreed to being repositioned to a semi-reclined position. Pt reported that dentures were fit looser in her mouth than typical, and that she did not have her glue with her. Pt reported pills getting stuck in her throat when swallowed. She stated that she discontinued GERD medication ~ 1 month previous. Reported by Patient Other Symptoms Coughing,Difficulty swallowing pills Comment Pt demonstrated coughing when drinking thin liquids from a straw in a reclined position. Current Diet Regular,Thin liquids Baseline Feeding Method Independent in self-feeding Objective Assessment Mental Status Alert,Responsive,Cooperative Oral Integrity WFL Dentition Missing teeth,Dentures or partials present Observation of Lips at Rest Symmetrical Pucker Within normal limits Lip Retraction Within normal limits Alternating Pucker/Lip Retraction Within normal limits Tongue Function Within normal limits Observations of Tongue at Rest Within normal limits Tongue Protrusion Within normal limits Tongue Retraction Within normal limits Tongue Lateralization Within normal limits Jaw Function Within normal limits Observations of Jaw at Rest Within normal limits Jaw Opening Within normal limits Jaw Closing Within normal limits Jaw Lateralization Within normal limits Jaw Protrusion Within normal limits Jaw Retraction Within normal limits Hard/Soft Palate Function Within normal limits Observations of Hard/Soft Palate Within normal limits Nasality Within normal limits Phonation Within normal limits Respiratory Sufficiency Within normal limits Comment All oral structures functioning within normal limits, exhibiting proper coordination, speed and strength for swallowing. Pt demonstrated slightly reduced tongue protrusion with upward movement, though not enough to negatively affect swallow. Food and Liquid Trials Position During Assessment Slightly reclined Liquids Trialed Ice chips,Thin Solids Trialed Puree,Dysphagia Mechanical Administration Type Tea spoon,Cup single sip,Cup consecutive sips,Self-feeding Oral Impairment Within normal limits Oral Phase Comments Pt demonstrated successful oral phase swallow across multiple trials, consistencies and textures. Pharyngeal Impairment Within normal limits Pharyngeal Phase Comments Pt exhibited coughing when drinking thin liquid from a straw in a fully reclined position. When repositioned, pt successfully swallowed multiple textures and consistencies with no signs of aspiration. Could not rule out silent aspiration with a clinical swallow evaluation. Comment Could not assess due to minimal trials presented. Findings Swallowing Function Other dysphagia Swallowing Function Comments Esophageal dysphagia Severity of Swallow Impairment Mildly impaired Comment Pt presents with esophageal dysphagia characterized by regurgitated food and pills getting stuck. Due to esophageal impairment, reocommend dysphagia mechanical and thin liquid diet. Provided education on diet texture, positioning, GERD, and esophageal dysphagia . Pt expressed understanding. Pt will restart GERD medication, and if that does not work will soften diet. May consider crushing pills in carrier due to esophageal impairment. Pt discharged from today and will complete recommendations at home. No speech therapy follow-up at this time due to pt discharge. If pt continues having trouble swallowing, recommend follow-up with GI before pursuing speech therapy as swallow difficulty appears to be primarily esophageal. Impact on Safety and Functioning No limitations Recommendations Instrumental Assessment No Swallowing Treatment Yes Recommended Solids Dysphagia Mechanical Recommended Liquids Thin Safety Precautions/Swallowing Feed only when alert,Reduce Recommendations distractions,Remain upright ( 90 degrees) during all oral intake,Upright position at least 30 minutes after meals, Small bites and sips when eating,Slow rate; swallow between bites Medication Recommendations Crushed in Carrier Discharge Recommendations Home Referrals Recommended Referrals Gastroenterology Education Patient/Caregiver Education Described results of evaluation,Patient expressed understanding of evaluation, Patient expressed agreement with goals & treatment plans, Patient expressed understanding of safety precautions,Patient expressed understanding of feeding recommendations,Patient requires further education/ training Goals Short-term Goals 1. Pt will safely tolerate least restrictive diet to meet her nutrition and diet needs.
--- NOTE | 2022-11-21 08:30 | CM.DPNOTE ---
Post DC Note Received voice message from daughter Velia Hein [phone]; Velia agitated and reviews her concerns about patient's discharge, stating her mom was discharged prematurely and has not been seen by [facility] services Family has attempted contact w/[facility] and has not heard back Faxed DC Summary to [facility] w/facesheet indicating patient discharged 11.16.22 and family stating they have not heard or seen a provider yet Attempted phone contact w/ [facility] and was waiting on hold for quite some time, could not wait any longer Velia indicated she will call back Wednesday JW
--- NOTE | 2022-11-23 08:02 | CM.DPNOTE ---
Late note: Soledad called from [facility] stating they started seeing patient on 11/19/22. She says she received a fax from [facility] on Wednesday saying they haven't heard from home health. Sienna Gallo CM Assist.
== END 2022-11-16 12:45 | disposition home or self-care (01) ==
LOC: OR 11-16 07:17 → AC 11-16 07:17
PROVIDERS: Admitting Provider Orthopaedic Surgery; Family Provider Internal Medicine Geriatric Medicine; PCP Internal Medicine Geriatric Medicine; Referring Provider Orthopaedic Surgery; Visit Provider Orthopaedic Surgery
PROC: 0SRD0JZ Replacement of Left Knee Joint with Synthetic Substitute, Open Approach (ICD-10-PCS; CPT 27447; principal; 2022-11-13 12:00)
DX: M17.12 Unilateral primary osteoarthritis, left knee (principal)
CPT/HCPCS: 27447; 36415; 73560; 82962; 85014; 85018; 87635; 92610; 97110; 97116; 97162; 97530; C1776; C9803; G0378; C9113; C9290; J0171; J0690; J2250; J2704